=== PATIENT | female | born 1945 | race Caucasian/White ===

== ENCOUNTER 2019-09-27 08:25 | Outpatient (CLI) | payer MEDICARE, SELFPAY ==
--- NOTE | 2019-09-27 08:28 | ECG_ITS ---
Measurements Intervals [place] Rate: 64 P: 15 MS: 141 QRS: 43 QRSD: 97 T: 43 QT: 416 QTc: 431 Interpretive Statements SINUS RHYTHM NONSPECIFIC ST & T-WAVE ABNORMALITY- ANTERIOR LEADS BASELINE WANDER- V3 BORDERLINE ECG Electronically Signed On 09-27-2019 10:49:21 CDT by Jim Brown D.O.
== END 2019-09-27 08:26 | disposition home or self-care (01) ==
PROVIDERS: PCP Family Medicine Adolescent Medicine; Visit Provider Orthopaedic Surgery
DX: I10 Essential (primary) hypertension (principal); R94.31 Abnormal electrocardiogram [ECG] [EKG]
CPT/HCPCS: 93005

== ENCOUNTER 2019-09-29 02:05 | Outpatient (CLI) | payer MEDICARE, SELFPAY ==
[2019-09-29 18:38] LABS: SARS-CoV-2 RNA PCR Negative
== END 2019-09-29 02:06 | disposition home or self-care (01) ==
LOC: ANHCOVIDDT 02:06
PROVIDERS: PCP Family Medicine Adolescent Medicine; Visit Provider Orthopaedic Surgery
DX: Z01.812 Encounter for preprocedural laboratory examination (principal); Z11.59 Encounter for screening for other viral diseases
CPT/HCPCS: 87635; C9803; U0003

== ENCOUNTER 2019-10-01 01:38 | Day surgery (SDC) | payer MEDICARE, SELFPAY ==
[2019-09-24 14:18] VITALS: BMI 27.4
[2019-10-01] VITALS (17 sets, daily range): BP systolic 86–190; BP diastolic 66–111; PULSE 55–72; RESP 9–20; TEMP 36.1; O2SAT 93–100
--- NOTE | 2019-10-01 07:15 | WPDHPUPDATE1 ---
History and Physical Update Update Date/Time: 10/01/19 07:15 History and Physical has been reviewed, including an updated exam of the patient. There are NO changes in the patient's condition. Risks, benefits, and alternatives have been discussed and questions answered. Patient agrees to proceed with procedure.
--- NOTE | 2019-10-01 07:35 | WPDANESEPPF ---
Anes - Initial Pre Proc Eval Procedure: Operation Date: 10/01/19 09:00 Proposed Procedures p Left Knee Arthroscopy, Proceed As Indicated - Aashish Castaneda MD Date/Time: 10/01/19 07:35 Surgeon: Aashish Castaneda MD Pre Op Diagnosis: left medial meniscus tear Patient Data Age: 74 Gender: F Height: 5 ft 2 in Weight: 68.05 kg Allergies Allergy/AdvReac Type Severity Reaction Status Date / Time Sulfa (Sulfonamide Allergy Unknown Unknown Verified 09/24/19 14:09 Antibiotics) Home Medications Medication Instructions Recorded Confirmed Type atorvastatin 20 mg tablet 20 mg PO QPM 09/02/19 09/24/19 History baclofen 10 mg tablet 10 mg PO DAILY PRN 09/02/19 09/24/19 History candesartan 16 mg tablet 16 mg PO QPM 09/02/19 09/24/19 History esomeprazole magnesium 40 mg 40 mg PO QPM 09/02/19 09/24/19 History capsule,delayed release indomethacin 25 mg capsule 50 mg PO BID cap 09/02/19 09/24/19 History lorazepam 1 mg tablet 1 mg PO TID PRN 09/02/19 09/24/19 History trazodone 50 mg tablet 50 mg PO QPM tablet 09/02/19 09/24/19 History chlorhexidine gluconate 4 % 1 applic TOPICAL ONCE #237 ml 09/07/19 09/24/19 Rx topical liquid albuterol sulfate 2 puff INHALATION PRN PRN 09/24/19 09/24/19 History Patient hx anesthesia problems: post op nausea/vomiting Family hx anesthesia problems: none PMFSH Past Medical History Medical History Anemia Arthritis Asthma Hypertension TIA (transient ischemic attack) Surgical History Surgical History H/O skin graft History of appendectomy History of cholecystectomy History of hysterectomy History of tonsillectomy Family History Family History Other Hypertension Social History Social History Smoking status: Never smoker Alcohol intake: current Alcohol use details: ONE DRINK PER MONTH WINE Living arrangements: with family Spiritual care concerns: No Anes - Eval Final PreProcedure Day of Procedure 10/01/19 07:35 Patient weight: overweight Heart: regular rate and rhythm Lungs: clear to auscultation Airway: Mallampati scale class II Neurological: alert and oriented Last oral intake: >/= 8 hours ASA classification: III Emergent: no Anesthetic plan: proceed Anesthesia type and monitoring: general LMA and standard monitoring Informed Consent: The patient's anesthetic plan and its attendant risks and benefits were discussed with the patient/family/POA. Questions were solicited and answers provided to the satisfaction of the patient/family/POA.
[2019-10-01] MEDS: ACETAMINOPHEN 500 MG TABLET 1000 MG PO (08:15)
[2019-10-01] MEDS: CELECOXIB 200 MG CAPSULE PO (08:15)
[2019-10-01] MEDS: LACTATED RINGERS 1,000 ML 30 ML IV CONT ×2 (08:21→09:44)
[2019-10-01] MEDS: ceFAZolin 2 GM/D5W 50 ML 2 GM/50 ML BAG IVPB (08:44)
--- NOTE | 2019-10-01 09:43 | PM.OP ---
Procedure Note - Brief Procedure Note - Brief Date of procedure: 10/01/19 Pre-op diagnosis: left medial meniscus tear Post-op diagnosis: other (with lateral meniscus tear as well) Procedure performed: LEFT KNEE SCOPE Anesthesia: GLMA Surgeon: Aashish Castaneda MD Estimated blood loss (mL): 5 Complications: No immediate complications Condition: stable Disposition: PACU
--- NOTE | 2019-10-01 10:52 | OP_ITS ---
DATE OF PROCEDURE: 10/01/2019 PREOPERATIVE DIAGNOSIS: Left knee medial meniscus tear. POSTOPERATIVE DIAGNOSIS: Left knee medial meniscus tear with lateral meniscus tear. PROCEDURE PERFORMED: Left knee arthroscopy with partial medial meniscectomy, partial lateral meniscectomy, and major synovectomy. COMPLICATIONS: None. INDICATIONS: This is a 74-year-old female who had pain in the knee. She was diagnosed with a medial meniscus tear and a lateral meniscus tear. She was indicated for left knee arthroscopy. DESCRIPTION OF PROCEDURE: The patient was taken to the operating room in stable condition and placed in supine position. General anesthesia was induced and then, the left lower extremity was prepped and draped sterilely from the toes to the thigh. Superomedial portal used for an outflow cannula. Inferolateral portal was used for the camera. The camera was introduced. 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 Minimal chondromalacia into the trochlea. There was synovitis in Hoffa synovium and in the superomedial compartment that was impinging on the medial femoral condyle. The medial compartment was entered, there was a complex tear of the medial meniscus. A medial portal was established. The meniscus tear was resected down to a smooth base and chondroplasty was performed on the medial femoral condyle. There was an area of full thickness cartilage defect in the most posteromedial aspect of the medial plateau. The ACL then was intact. The lateral compartment was entered. There was a complex tear to the middle of the junction between the anterior and the posterior horns. This was resected with a shaver until there was a smooth base and limited chondroplasty was performed on the lateral femoral condyle. Next, the synovectomy was then performed in the lateral compartment due to impingement on the lateral joint line with flexion extension. Next, Hoffa synovium was resected and then the superomedial synovitis was also resected. The chondroplasty was then performed on the patella. The patella tracked without any tilt. The instruments were removed after thorough irrigation of the knee joint. The wounds were approximated with 4-0 nylon suture. Sterile dressing was applied and then the patient was extubated. Che I MT: Jessica
--- NOTE | 2019-10-01 10:52 | SUR.PHASEI ---
SATS TO 76% WHEN OXYGEN REMOVED; 8 L. OXYGEN PER FACE MASK REPLACED; PT REMAINS SLEEPY BUT AROUSABLE, SNORING.
[2019-10-01] MEDS: ONDANSETRON INJ 4 MG/2 ML VIAL IV PUSH (12:06)
--- NOTE | 2019-10-01 12:28 | SUR.PHASEI ---
1100 DR. MOJICA CALLED RE: PT'S PAIN AND SLEEPINESS; DR. MOJICA RECOMMENDED PT BE MOVED TO OP AREA.
--- NOTE | 2019-10-01 12:34 | SUR.PHASEII ---
DR. MOJICA NOTIFED RE: PT'S NAUSEA. ORDERS RECEIVED TO GIVE VALIUM AND BENADRYL.
[2019-10-01] MEDS: diphenhydrAMINE HCl INJ 50 MG/ML VIAL 12.5 MG IV PUSH (12:43)
--- NOTE | 2019-10-01 13:35 | SUR.PHASEII ---
DR. MOJICA CALLED RE: PT'S SLEEPINESS BUT PERSISTENT NAUSEA/PAIN. COOL COMPRESS TO PT'S NECK.
--- NOTE | 2019-10-01 13:49 | SUR.PHASEII ---
DR. ARAGON CALLED RE: PT'S SLEEPINESS/PAIN 10/17 AND PERSISTENT NAUSEA; OKAY'D TO GIVE TORADOL AND TO CONTINUE TO MONITOR PT. DR. ARAGON WILL CALL IN SCRIPT FOR ZOFRAN FOR HOME USE.
[2019-10-01] MEDS: KETOROLAC 30 MG/ML VIAL (*BKC) IV PUSH (14:00)
--- NOTE | 2019-10-01 14:48 | SUR.PHASEII ---
PT MUCH MORE AWAKE, ALERT, ABLE TO TRANSFER FROM WHEELCHAIR TO TOILET. VOIDED X 2. PAIN NOW 05/17. NAUSEA MINIMAL.
== END 2019-10-01 14:59 | disposition home or self-care (01) ==
PROVIDERS: PCP Family Medicine Adolescent Medicine; Visit Provider Orthopaedic Surgery
PROC: (CPT 29870; principal; 2019-10-01 09:00)
DX: M23.332 Other meniscus derangements, other medial meniscus, left knee (principal); M23.362 Other meniscus derangements, other lateral meniscus, left knee; M65.862 Other synovitis and tenosynovitis, left lower leg; M22.42 Chondromalacia patellae, left knee; I10 Essential (primary) hypertension; J45.909 Unspecified asthma, uncomplicated; Z86.73 Personal history of transient ischemic attack (TIA), and cerebral infarction without residual deficits
CPT/HCPCS: 29880; A9270; J0690; J1100; J1200; J1885; J2250; J2405; J2704; J3010; J3360; J7120

== ENCOUNTER 2020-05-29 07:55 | Outpatient (CLI) | payer MEDICARE, SELFPAY ==
[2020-05-29 09:04] LABS: Basophils Percent Auto 0.4 % (0.2-1.2); Eosinophils Absolute Auto 0.1 K/mm3 (0-0.3); Eosinophils Percent Auto 1.9 % (0-4.4); Hematocrit 46.5 % (37.0-47.0); Hemoglobin 15.5 g/dL (12.0-15.0); Immature Granulocyte Absolute 0.01 K/mm3 (0.00-0.031); Immature Granulocyte Percent A 0.1 % (0-0.5); Lymphocytes Absolute Auto 2.91 K/mm3 (0.9-3.2); Lymphocytes Percent Auto 42.8 % (18.3-44.2); Mean Corpuscular HGB Conc 33.3 g/dl (32-36); Mean Corpuscular Hemoglobin 28.2 pg (26-34); Mean Corpuscular Volume 84.7 fl (80-100); Mean Platelet Volume 11.2 fl (7.4-10.4); Monocytes Absolute Auto 0.6 K/mm3 (0.1-0.6); Monocytes Percent Auto 8.1 % (2.6-8.5); Neutrophils Absolute Auto 3.2 K/mm3 (1.3-6.7); Neutrophils Percent Auto 46.7 % (45.5-73.1); Platelet Count Result 217 k/mm3 (150-375); Red Blood Count 5.49 M/mm3 (4.2-5.4); Red Cell Distribution Width 12.4 % (11.5-14.5); White Blood Count 6.8 K/mm3 (4.5-10.0)
[2020-05-29 09:08] LABS: Add Urine Microscopic? YES; Appearance Urine Clear (Clear); Bilirubin Urine Negative (Negative); Blood Urine 1+ (Negative); Color Urine Straw (Yellow); Glucose Urine UA Negative (Negative); Ketones Urine Negative (Negative); Leukocyte Esterase Ur Negative LEU/UL (Negative); Mucus Urine Rare /lpf; Nitrate Urine Negative (Negative); Protein Urine Negative (Negative); RBC Urine 0-2 /hpf (0-2); Specific Grav Ur 1.012 (1.001-1.035); Squamous Epithelial Cell Urine Rare /hpf (Few); Urobilinogen Urine Negative mg/dL (<2.0)
[2020-05-29 09:13] LABS: INR 0.8; Prothrombin Time 12.1 Seconds (11.1-14.7)
[2020-05-29 09:14] LABS: Partial Thromboplastin Time 31.5 SECONDS (22.3-36.8)
[2020-05-29 09:15] LABS: Albumin Level 4.4 g/dL (3.5-5.1); Anion Gap 4 mmol/L (8-16); Blood Urea Nitrogen 16 mg/dL (7-17); Calcium 10.1 mg/dL (8.4-10.2); Carbon Dioxide 32 mmol/L (22-30); Chloride 107 mmol/L (98-107); Estimated Glomerular Filt Rate > 60; Glucose 128 mg/dL (65-105); Potassium 3.8 mmol/L (3.4-5.0); Sodium 143 mmol/L (137-145)
[2020-05-29 10:07] LABS: Urine Cotinine NEGATIVE
[2020-05-29 11:12] LABS: Hemoglobin A1C 5.7 % (<5.7)
== END 2020-05-29 07:56 | disposition home or self-care (01) ==
LOC: ANHSURGERY 07:58
PROVIDERS: PCP Family Medicine Adolescent Medicine; Visit Provider Orthopaedic Surgery
DX: M17.12 Unilateral primary osteoarthritis, left knee (principal); Z01.818 Encounter for other preprocedural examination
CPT/HCPCS: 80048; 80307; 81001; 82040; 83036; 85025; 85610; 85730; 86850; 86900; 86901; 87081

== ENCOUNTER → 2020-06-03 00:29 | Outpatient (CLI) | payer MEDICARE, SELFPAY ==
[2020-06-03 20:23] LABS: SARS-CoV-2 RNA PCR Negative
== END ==
PROVIDERS: PCP Family Medicine Adolescent Medicine; Visit Provider Orthopaedic Surgery
DX: Z01.812 Encounter for preprocedural laboratory examination (principal); Z20.822 Contact with and (suspected) exposure to COVID-19
CPT/HCPCS: C9803; U0003; U0005

== ENCOUNTER 2020-06-08 15:42 | Observation (INO) | payer MEDICARE, SELFPAY ==
[2020-05-29 08:04] VITALS: BMI 30.5
[2020-05-29 08:54] VITALS: BP 162/96; PULSE 90; RESP 16; TEMP 36.7; O2SAT 96
[2020-06-07] VITALS (21 sets, daily range): BP systolic 105–151; BP diastolic 58–95; PULSE 73–100; RESP 14–26; TEMP 36.1–37.2; O2SAT 93–100; BMI 30.2
--- NOTE | 2020-06-07 07:13 | WPDHPUPDATE1 ---
History and Physical Update Update Date/Time: 06/07/20 07:13 History and Physical has been reviewed, including an updated exam of the patient. There are NO changes in the patient's condition. Risks, benefits, and alternatives have been discussed and questions answered. Patient agrees to proceed with procedure.
[2020-06-07] MEDS: ACETAMINOPHEN 500 MG TABLET 1000 MG PO (08:46)
[2020-06-07] MEDS: LACTATED RINGERS 1,000 ML 30 ML IV CONT ×3 (08:59→14:06)
[2020-06-07] MEDS: TRANEXAMIC ACID 1,000MG/ISO100 1,000 MG/100 ML BAG 200 MG IVPB (09:01)
--- NOTE | 2020-06-07 09:11 | WPDANESEPPF ---
Anes - Initial Pre Proc Eval Procedure: Operation Date: 06/07/20 10:30 Proposed Procedures p Left Total Knee Arthroplasty - Aashish Castaneda MD Date/Time: 06/07/20 09:11 Surgeon: Aashish Castaneda MD Pre Op Diagnosis: Left Knee DJD Patient Data Age: 74 Gender: F Height: 5 ft 2 in Weight: 75.7 kg Last Vital Signs Temp 36.7 C 06/07/20 08:30 Pulse 95 06/07/20 08:30 Resp 16 06/07/20 08:30 BP 151/95 H 06/07/20 08:30 Pulse Ox 98 06/07/20 08:30 Allergies Allergy/AdvReac Type Severity Reaction Status Date / Time Sulfa (Sulfonamide Allergy Unknown Unknown Verified 06/07/20 08:29 Antibiotics) Home Medications Medication Instructions Recorded Confirmed Type atorvastatin 20 mg tablet 20 mg PO QPM 09/02/19 06/07/20 History esomeprazole magnesium 40 mg 40 mg PO QPM 09/02/19 06/07/20 History capsule,delayed release lorazepam 1 mg tablet 1 mg PO TID PRN 09/02/19 06/07/20 History trazodone 50 mg tablet 50 mg PO HS tablet 09/02/19 05/29/20 History albuterol sulfate 2 puff INHALATION PRN PRN 09/24/19 06/07/20 History chlorhexidine gluconate 4 % 1 applic TOPICAL ONCE #237 ml 05/02/20 06/07/20 Rx topical liquid amlodipine 5 mg tablet 5 mg PO HS 05/18/20 06/07/20 History candesartan 32 mg PO HS 05/29/20 06/07/20 History tramadol 50 mg tablet 50 mg PO Q6H PRN #28 tablet 05/29/20 Rx Patient hx anesthesia problems: other (slow to awaken) Family hx anesthesia problems: none PMFSH Past Medical History Medical History Anemia Arthritis Asthma Effusion, left knee Hypertension Left knee DJD Medial meniscus tear TIA (transient ischemic attack) Surgical History Surgical History H/O skin graft History of appendectomy History of arthroscopy of left knee History of cholecystectomy History of hysterectomy History of tonsillectomy Family History Family History Other Hypertension Social History Social History Smoking status: Never smoker Additional smoking assessment comments: DENIES ANY FORM OF TOBACCO USE Alcohol intake: current Alcohol use details: ONE DRINK PER MONTH Living arrangements: with family Spiritual care concerns: No Anes - Eval Final PreProcedure Day of Procedure 06/07/20 09:11 Patient weight: obese Heart: regular rate and rhythm Lungs: clear to auscultation Airway: Mallampati scale class II Neurological: alert and oriented Last oral intake: >/= 8 hours ASA classification: III Emergent: no Anesthetic plan: proceed Anesthesia type and monitoring: general LMA and standard monitoring Other findings: slow to awaken Informed Consent: The patient's anesthetic plan and its attendant risks and benefits were discussed with the patient/family/POA. Questions were solicited and answers provided to the satisfaction of the patient/family/POA.
--- NOTE | 2020-06-07 10:14 | WPDANESPNB ---
Anes - Peripheral Nerve Block Date/Time: 06/07/20 10:14 I have discussed with the patient/family/POA the placement of a peripheral nerve block for post-operative pain management, including associated risks, benefits, complications, and side effects. Alternative methods of post-operative analgesia were detailed. Questions were solicited and answers provided to the satisfaction of the patient/family/POA. Time-Out: A pre-procedural Time-Out was completed immediately before starting the procedure and confirmed: Patient Identification, Site, Procedure, Patient Position and the Availability of Requisite Equipment. Clinical Indications: Acute post-operative pain management requested by the operative surgeon. Nerve Block Insertion Note Anes-nerve block: femoral left Patient position: supine Skin prep: chlorhexidine Needle: 22 gauge, stimulating, insulated echogenic needle. Needle length: 80 mm Technique: nerve stimulation lost at (mA) (0.21) Technique comment: mid 1 [id number] Injectate: other (bupiv 0.33% 30 ml) Observations: tolerated well Complications: none Procedure start time:: 1008 Procedure end time:: 1013
[2020-06-07] MEDS: ceFAZolin 2 GM/D5W 50 ML 2 GM/50 ML BAG IVPB ×2 (10:25→17:40)
[2020-06-07] MEDS: TRANEXAMIC ACID 1,000 MG/10 ML AMPUL 1000 MG IV PUSH (12:07)
[2020-06-07] MEDS: GENTAMICIN BONE CEMENT REFOBACIN 1 EACH TOPICAL (12:33)
--- NOTE | 2020-06-07 12:56 | PM.PROC ---
Procedure Note - Detailed Date of procedure: 06/07/20 Pre-op diagnosis: Left Knee DJD Post-op diagnosis: same Procedure performed: L TKA Description of procedure: THE LEFT KNEE WAS PREPPED AND DRAPED IN THE STERILE FASHION. A MIDLINE SKIN INCISION WAS MADE. A MEDIAL PARAPATELLAR ARTHROTOMY WAS MADE. THE PATELLA WAS EVERTED. THERE WAS TRICOMPARTMENT DJD. THERE WAS MINIMAL PATELLA DJD. AN INTRAMEDULLARY ROBYN WAS PLACED IN THE FEMUR. A DISTAL FEMORAL CUT WAS MADE IN 5 DEGREES OF VALGUS REMOVING APPROXIMATELY 9 MM OF BONE FROM THE DISTAL FEMUR. THE FEMUR WAS SIZED TO 62.5. A 62.5 FEMORAL CUTTING BLOCK WAS PLACED IN 3 DEGREES OF EXTERNAL ROTATION AND IN ALIGNMENT WITH ERIC'S LINE AND THE TRANSEPICONDYLAR AXIS. ANTERIOR POSTERIOR AND CHAMFER CUTS WERE MADE. THE CUTS WERE EXCELLENT. NEXT AN INTRAMEDULLARY CUTTING GUIDE WAS PLACED IN THE TIBIA. A TRANS TIBIAL CUT WAS MADE ALONG THE LONG AXIS OF THE TIBIA. APPROXIMATELY 10 MM OF BONE WAS REMOVED FROM THE HIGH SIDE OF THE TIBIA. THE TIBIA WAS THEN PLANED TO A SMOOTH SURFACE. POSTERIOR FEMORAL OSTEOPHYTES WERE REMOVED FROM THE FEMORAL CONDYLES. A 71 TIBIAL TRIAL WAS PLACED IN ALIGNMENT WITH THE 1/3 MEDIAL ASPECT OF THE TIBIAL TUBERCLE. THEN A 62.5 FEMORAL TRIAL COMPONENT WAS PLACED. BOTH HAD EXCELLENT FITS. EVENTUALLY A 10 MM POLYETHYLENE TRIAL COMPONENT WAS PLACED. THE KNEE WAS TAKEN THROUGH A RANGE OF MOTION. THE KNEE CAME OUT TO FULL EXTENSION. THERE WAS NO ABNORMAL TILT TO THE PATELLA. THERE WAS GOOD A/P AND VARUS/VALGUS STABILITY. THERE WAS NO EXCESSIVE ROLL BACK WITH FLEXION. THE TRIAL COMPONENTS WERE REMOVED. THEN A 62.5 FEMORAL COMPONENT AND 71 TIBIAL COMPONENT WITH A 10 POLYETHYLENE COMPONENT WERE CEMENTED INTO PLACE. ONCE THE CEMENT WAS HARD THE KNEE WAS TAKEN THROUGH A ROM AGAIN AND FOUND TO BE STABLE WITH NO PATELLA TILT NO EXCESSIVE ROLL BACK WITH FLEXION AND GOOD STABILITY WITH COMPLETE AND FULL EXTENSION. THE KNEE WAS IRRIGATED WITH STERILE BETADINE AND WATER FOR ABOUT 3 MINUTES. THE BLEEDERS WERE CAUTERIZED. THE ARTHROTOMY WAS REPAIRED WITH NUMBER 1 VICRYL. THE SUB CUTANEOUS LAYER WITH 2-0 VICRYL AND THE SKIN WITH EARL. THE WOUND WAS WASHED AND A STERILE DRESSING WAS APPLIED. PATIENT WAS EXTUBATED. Anesthesia: GETA Surgeon: Aashish Castaneda MD Estimated blood loss (mL): 100 Complications: No immediate complications Condition: stable Disposition: PACU
[2020-06-07] MEDS: fentaNYL CITRATE INJ (*CRX) 100 MCG/2 ML VIAL 25 MCG IV PUSH ×5 (13:06→14:11)
[2020-06-07] MEDS: ALBUTEROL SULFATE NEB 2.5 MG/0.5 ML INH INHALATION (13:36)
--- NOTE | 2020-06-07 15:50 | ADMGEN ---
This patient, Tierra Nelson, was admitted to 2 Medical Room 241-01. Patient/family oriented to hospital policies and general routines including ID bracelet, bed and alarms, visiting hours, pain management, procedures, bathroom and other care routines, personal items, smoking policy, room service/diet, and visiting hours. Information on how to activate the Rapid Response Team has been discussed. Patient/Family are encouraged to report perceived risks to care and to ask questions if they do not understand what they are told or what they should do.
[2020-06-07] MEDS: ONDANSETRON INJ 4 MG/2 ML VIAL IV PUSH ×2 (16:39→20:26)
[2020-06-07] MEDS: oxyCODONE/ACETAMINOPHEN (*CRX) 5-325 MG TABLET 1 TABLET PO ×2 (16:39→20:56)
[2020-06-07] MEDS: ATORVASTATIN 20 MG TABLET PO (17:40)
[2020-06-07] MEDS: PANTOPRAZOLE 40 MG TABLET PO (17:40)
[2020-06-07] MEDS: DOCUSATE SODIUM 100 MG CAPSULE PO (17:40)
[2020-06-07] MEDS: amLODIPine BESYLATE 5 MG TABLET PO (20:55)
[2020-06-07] MEDS: CANDESARTAN CILEXETIL 16 MG TABLET 32 MG PO (20:56)
[2020-06-08] VITALS (11 sets, daily range): BP systolic 79–124; BP diastolic 48–84; PULSE 79–97; RESP 16–20; TEMP 36.7–37.1; O2SAT 93–98
--- NOTE | ~2020-06-08 | US_ITS ---
EXAMINATION: US venous doppler [facility] DATE: 06/08/2020 10:56 INDICATION: Left lower limb pain and swelling post recent knee replacement TECHNIQUE: Grayscale ultrasound images without and with compression and Doppler ultrasound images of the left lower extremity veins were obtained. COMPARISON: 09/13/2013 FINDINGS: The visualized portions of left common femoral vein, profunda (deep) femoral vein, femoral vein, popl iteal vein, peroneal veins, posterior tibial veins, gastrocnemius vein and greater saphenous vein out flow remain patent. IMPRESSION: 1. No deep venous thrombosis in the left lower limb. Reviewed, dictated and finalized at location A.
--- NOTE | ~2020-06-08 | XR_ITS ---
EXAMINATION: XR knee LT 2V DATE: 06/07/2020 13:03 INDICATION: Postoperative evaluation following left total knee arthroplasty. TECHNIQUE: Anteroposterior and lateral views of the left knee were obtained. COMPARISON: 05/18/2020 FINDINGS: Left total knee arthroplasty without patellar resurfacing appears well seated and in near anatomic al ignment. No fractures identified. Skin gabriella and expected postoperative subcutaneous and intra-ar ticular gas. IMPRESSION: 1. Left total knee arthroplasty, negative for postoperative purposes. Reviewed, dictated and finalized at location A.
[2020-06-08] MEDS: ceFAZolin 2 GM/D5W 50 ML 2 GM/50 ML BAG IVPB ×2 (02:01→11:32)
[2020-06-08] MEDS: oxyCODONE/ACETAMINOPHEN (*CRX) 5-325 MG TABLET 1 TABLET PO (02:02)
[2020-06-08] MEDS: ONDANSETRON INJ 4 MG/2 ML VIAL IV PUSH (02:03)
[2020-06-08 06:07] LABS: Basophils Percent Auto 0.2 % (0.2-1.2); Eosinophils Percent Auto 0.1 % (0-4.4); Hematocrit 34.6 % (37.0-47.0); Hemoglobin 11.3 g/dL (12.0-15.0); Immature Granulocyte Absolute 0.05 K/mm3 (0.00-0.031); Immature Granulocyte Percent A 0.4 % (0-0.5); Lymphocytes Percent Auto 16.3 % (18.3-44.2); Mean Corpuscular HGB Conc 32.7 g/dl (32-36); Mean Corpuscular Hemoglobin 27.7 pg (26-34); Mean Corpuscular Volume 84.8 fl (80-100); Mean Platelet Volume 11.8 fl (7.4-10.4); Monocytes Absolute Auto 1.4 K/mm3 (0.1-0.6); Monocytes Percent Auto 11.2 % (2.6-8.5); Neutrophils Absolute Auto 9.3 K/mm3 (1.3-6.7); Neutrophils Percent Auto 71.8 % (45.5-73.1); Platelet Count Result 216 k/mm3 (150-375); Red Blood Count 4.08 M/mm3 (4.2-5.4); Red Cell Distribution Width 12.6 % (11.5-14.5); White Blood Count 12.9 K/mm3 (4.5-10.0)
[2020-06-08 06:27] LABS: Anion Gap 3 mmol/L (8-16); Blood Urea Nitrogen 19 mg/dL (7-17); Calcium 9.4 mg/dL (8.4-10.2); Carbon Dioxide 30 mmol/L (22-30); Chloride 105 mmol/L (98-107); Estimated CRCL calculation 52 ml/min; Estimated Glomerular Filt Rate > 60; Glucose 120 mg/dL (65-105); Sodium 138 mmol/L (137-145)
--- NOTE | 2020-06-08 07:34 | WPDANESPN ---
Anes - Prog Note Post-Op Date/Time: 06/08/20 07:34 Cardiovascular status: normal Respiratory status: normal Airway patency: baseline Mental status: baseline Post-Op hydration status: normal Vital Signs: Last Vital Signs Temp 36.8 C 06/08/20 01:35 Pulse 82 06/08/20 01:35 Resp 20 06/08/20 01:35 BP 120/74 06/08/20 01:35 Pulse Ox 98 06/08/20 01:35 Pain Score (VAS): 0 I/O: Intake & Output 06/07/20 06/07/20 06/08/20 15:59 23:59 07:59 Intake Total 650 50 50 Output Total 350 Balance 300 50 50 Laboratory Tests 06/08/20 05:12 06/08/20 05:12 06/08/20 06/08/20 05:12 05:12 WBC 12.9 H RBC 4.08 L Hgb 11.3 L D Hct 34.6 L MCV 84.8 MCH 27.7 MCHC 32.7 RDW 12.6 Plt Count 216 MPV 11.8 H Immature Gran % (Auto) 0.4 Neut % (Auto) 71.8 Lymph % (Auto) 16.3 L Morrison % (Auto) 11.2 H Eos % (Auto) 0.1 Baso % (Auto) 0.2 Lymph # (Auto) 2.10 Morrison # (Auto) 1.4 H Eos # (Auto) 0.0 Baso # (Auto) 0.0 Abs Immat Gran (auto) 0.05 H Absolute Neuts (auto) 9.3 H Absolute Nucleated RBC 0.0 Nucleated RBC % 0.0 Sodium 138 Potassium 4.0 Chloride 105 Carbon Dioxide 30 Anion Gap 3 L BUN 19 H Creatinine 0.80 Estim Creat Clear Calc 52 Estimated GFR > 60 Glucose 120 H Calcium 9.4 Post-procedural complaints: none Patient Feedback: Patient satisfied with anesthetic care.
[2020-06-08] MEDS: oxyCODONE HCL (*CRX) 2.5 MG TAB IR 7.5 MG PO ×4 (08:16→20:49)
[2020-06-08] MEDS: DOCUSATE SODIUM 100 MG CAPSULE PO ×2 (08:17→16:43)
--- NOTE | 2020-06-08 08:24 | PM.IMCN ---
Assessment and Plan Assessment and plan (1) Status post left knee replacement: Code(s): Z96.652 - Presence of left artificial knee joint Status: Acute Assessment and Plan: She underwent left total knee arthroplasty on 06/07/[address] Castaneda. She tolerated the procedure well and pain is well controlled at this time. This is being managed per Orthopedic Surgery. She had some left lower leg swelling and tenderness postoperatively. Venous Doppler negative for DVT. Suspect this is related to postsurgical changes. (2) Hypotension after procedure: Code(s): I95.81 - Postprocedural hypotension Status: Acute Assessment and Plan: Her BP declined to 79/48 this morning while walking with therapy. She has felt dizzy at that time but the symptoms have resolved. Prior blood pressure readings have been well controlled. I suspect this is multifactorial related to recent surgical procedure, anesthesia, and dehydration. Upon further review, she also had an episode of hypotension with last surgical procedure in September 2019. Administer 500 mL IV fluid bolus. Check orthostatics. Monitor BP trends closely. Will hold amlodipine and candesartan at this time. (3) Anemia: Code(s): D64.9 - Anemia, unspecified Status: Acute Assessment and Plan: She has a documented history of anemia, however prior labs are within normal limits. She did have a 4 point decline in hemoglobin postoperatively compared to presentation which is likely related to surgical blood loss as well as dilutional effect. Hemoglobin and hematocrit remain stable. Vital signs are stable and there is no evidence of ongoing blood loss. Continue to monitor H&H. Will transfuse as needed with hemoglobin threshold <7.0. (4) Hypertension: Code(s): I10 - Essential (primary) hypertension Status: Acute Assessment and Plan: Blood pressure reviewed and has been fairly well controlled. She has had some episodes of low blood pressure this morning. Will hold amlodipine in candesartan while monitoring BP trends. (5) Asthma: Qualifiers: Asthma severity: mild Asthma persistence: intermittent Asthma complication type: with acute exacerbation Qualified Code(s): J45.21 - Mild intermittent asthma with (acute) exacerbation Code(s): J45.909 - Unspecified asthma, uncomplicated Status: Acute Assessment and Plan: Not in acute exacerbation. She is maintaining adequate oxygen saturations on room air. Continue albuterol as needed. HPI Data of Consult Consult date: 06/08/20 Requesting Physician: Aashish Castaneda MD Primary Care Provider: Benjamín Currie MD Consult Narrative Narrative: Date of admission: 06/08/2019 Date of service: 06/09/2019 Tierra Nelson is a 74 year old female with a history left knee degenerative joint disease, hypertension, asthma, osteoarthritis, anemia, GERD, and TIA >10 years ago who has undergone left total knee arthroplasty on 06/07/[address] Castaneda. She tolerated the procedure well. She complains of 7/10 pain in the knee and stated that it was 8.5/10 just a bit ago when she was up walking with therapy. She is also complaining of swelling in the left leg, especially in the calf and states that her calf is very tender. This morning, when she was walking with therapy, she felt very dizzy and it was noted that her blood pressure decreased to 79/48. This improved upon getting back in bed. At this time, she is denying dizziness or lightheadedness. She plans to return home where she lives with her daughter and complete her therapy as an outpatient. She has 2 steps to get into her home. Her daughter is with her multimedia journalist to assist her. Review of Systems Review of Systems: Narrative: All systems reviewed with pertinent positives and negatives as per HPI. She felt nauseous after the procedure and had 1 episode of emesis. Nausea and vomiting hav
--- NOTE | 2020-06-08 08:52 | PM.PNORT ---
Progress Note: A&P Assessment and Plan (1) Status post left knee replacement: Code(s): Z96.652 - Presence of left artificial knee joint Status: Acute Assessment and Plan: POD #1: Left TKA Continue PT/OT. WBAT. Walker. Continue pain control. Ice Knee. DVT prophylaxis. SCDs. Incentive spirometry. Monitor dressing. Change prior to discharge. Dispo: Home with Home Health today pending progress with PT/OT. Subjective Subjective Date/Time Seen: 06/08/20 08:52 Post Op day: 1 Principal diagnosis: Left Knee DJD Interval history: POD #1: Left TKA Patient reports some anxiety/panic this morning but is now feeling better. Awaiting PT/OT this AM. Tolerating diet well. Hopeful for discharge home today. Review of Systems Review of Systems: All systems reviewed & are unremarkable except as noted in HPI and below Constitutional: Constitutional: Denies fever(s) and Denies headache(s) ENT: Denies headache(s) Cardiovascular: Cardiovascular: Denies chest pain, Denies diaphoresis, Denies palpitations and Denies dyspnea Respiratory: Respiratory: Denies dyspnea Gastrointestinal: Gastrointestinal: Denies abdominal pain, Denies constipation, Denies nausea and Denies vomiting Genitourinary: Genitourinary: Reports nocturia and Denies dysuria Musculoskeletal: Musculoskeletal: Reports arthralgias (Left Knee ) and Reports joint swelling (Left Knee ) Neurologic: Denies headache(s) Endocrine: Endocrine: Denies palpitations Exam Const: General: comfortable and no acute distress Resp: Effort & Inspection: normal respiratory effort Cardio: Rate: regular rate Rhythm: regular rhythm GI: GI Palp: Yes Soft to palpation, No Tenderness to palpation present (GI) and No Guarding due to palpation present (GI) Skin: Wounds: wounds noted Other: Incision c/d/i. No surrounding redness/warmth. No hematoma. Mild ecchymosis. No wound dehiscence Neuro: Cognition (Neuro): normal cognition Other: NV intact aside from block. Moves toes. Sensation intact to light touch. +ankle dorsiflexion/plantarflexion. Extrem: Right lower extremity: normal to inspection, full ROM and knee Details: normal to inspection and normal ROM; no tenderness and no swelling Left lower extremity: normal to inspection, full ROM, knee Details: tenderness Location: of the patella, of the medial joint line and of the lateral joint line, swelling Location: of the patella and abnormal ROM (ROM limited due to pain/consistent with recent surgery ), lower leg Details: tenderness Location: of the posterior calf, ankle (+ankle dorsiflexion/plantarflexion ) Details: no edema and foot (2+ pedal pulses. ) Details: normal capillary refill, toes with normal ROM and vascular exam Details: dorsalis pedis pulse present Other: Incision left TKA dressing c/d/i. No hematoma. No signs of infection. No wound dehiscence. Psych: Mental Status: mental status grossly normal Objective Data Vital Signs Vital Signs: Vital Signs - 24 hr 06/07/20 12:49 06/07/20 13:00 06/07/20 13:15 Temperature 36.6 C Pulse Rate 80 82 73 Respiratory Rate 24 H 26 H 22 H Blood Pressure 116/80 119/74 137/81 Pulse Oximetry 94 93 97 06/07/20 13:30 06/07/20 13:37 06/07/20 13:45 Temperature Pulse Rate 81 76 73 Respiratory Rate 22 H 18 16 Blood Pressure 149/75 H 139/75 Pulse Oximetry 99 96 06/07/20 14:00 06/07/20 14:15 06/07/20 14:30 Temperature Pulse Rate 89 90 84 Respiratory Rate 20 20 18 Blood Pressure 137/86 130/83 131/76 Pulse Oximetry 93 93 97 06/07/20 14:45 06/07/20 15:00 06/07/20 15:15 Temperature 37.2 C Pulse Rate 83 86 87 Respiratory Rate 14 16 16 Blood Pressure 138/81 134/86 141/76 H Pulse Oximetry 98 97 93 06/07/20 15:27 06/07/20 15:50 06/07/20 16:05 Temperature 36.2 C L 36.6 C Pulse Rate 88 89 87 Respiratory Rate 16 16 16 Blood Pressure 140/76 127/76 105/58 L Pulse Oximetry 93 96 96 06/07/20 16:35 06/07/20 17:35 06/07/20 17:50 Temperat
[2020-06-08] MEDS: SODIUM CHLORIDE 0.9% IV 500 ML IV CONT (10:25)
[2020-06-08] MEDS: ASPIRIN 325 MG ENTERIC TABLET 650 MG PO (10:30)
[2020-06-08] MEDS: PANTOPRAZOLE 40 MG TABLET PO (16:45)
[2020-06-08] MEDS: ATORVASTATIN 20 MG TABLET PO (16:45)
[2020-06-09] MEDS: ONDANSETRON INJ 4 MG/2 ML VIAL IV PUSH (01:11)
[2020-06-09] MEDS: LORazepam (*CRX) 1 MG TABLET PO ×2 (01:14→08:57)
[2020-06-09 02:00] VITALS: BP 122/69; PULSE 69; RESP 18; TEMP 37.4; O2SAT 96
--- NOTE | 2020-06-09 04:04 | PC.NURSE ---
ATTEMPTED TO CALL DR ARAGON. PTS LEFT LOWER LEG EDEMATOUS AND TAUT, KNEE REDDENED AND WARM TO TOUCH
[2020-06-09 05:09] LABS: Hematocrit 31.3 % (37.0-47.0)
[2020-06-09 06:00] VITALS: BP 118/69; PULSE 99; RESP 18; TEMP 37.1; O2SAT 97
[2020-06-09] MEDS: oxyCODONE HCL (*CRX) 2.5 MG TAB IR 7.5 MG PO (06:41)
--- NOTE | 2020-06-09 07:38 | PCOTNOTE ---
Attempted to see Patient for A.M. treatment session. Per RN, Patient unable to be seen at this time. Patient is having changes in surgical site and RN consulting. Will check back at a later time.
--- NOTE | 2020-06-09 07:39 | PCPTNOTE ---
Addendum entered by Antonieta Lincoln, [employer] DIRECTOR 06/09/20 10:19: Verbal approval from RN to continue with PT. Original Note: PT treatment was held this AM per RN, due to change in surgical site. Will continue per Plan of Care frequency and duration.
--- NOTE | 2020-06-09 08:11 | PM.PNORT ---
Progress Note: A&P Assessment and Plan (1) Status post left knee replacement: Code(s): Z96.652 - Presence of left artificial knee joint Status: Acute Assessment and Plan: POD #2: Left TKA Difficulty with pain control yesterday and hypotensive episode x1. BP stable today. VSS. H/H Stable. Continue PT/OT. WBAT. Walker. OOB to chair. Continue pain control. Ice Knee. DVT prophylaxis with Aspirin. SCDs. Incentive spirometry. Ankle ROM. Monitor dressing. Change prior to discharge. Send patient with one additional dressing to be changed by home health in 5 days. Dispo: Home with Home Health today pending clearance from PT/OT. (2) Pain of left calf: Code(s): M79.662 - Pain in left lower leg Status: Acute Assessment and Plan: Patient with complaints of left calf pain/tightness yesterday. Doppler negative for DVT on 06/08. Patient on DVT prophylaxis. SCDs. Thigh/Calf soft today. Swelling consistent with recent surgical intervention. No erythema/warmth. Subjective Subjective Date/Time Seen: 06/09/20 08:11 POD #2: Left TKA Patient with c/o pain this AM. Improvement in anxiety. Awaiting PT/OT. Review of Systems Review of Systems: All systems reviewed & are unremarkable except as noted in HPI and below Constitutional: Constitutional: Denies fever(s) and Denies headache(s) ENT: Denies headache(s) Cardiovascular: Cardiovascular: Denies chest pain, Denies diaphoresis, Denies palpitations and Denies dyspnea Respiratory: Respiratory: Denies dyspnea Gastrointestinal: Gastrointestinal: Denies abdominal pain, Denies constipation, Denies nausea and Denies vomiting Genitourinary: Genitourinary: Reports nocturia and Denies dysuria Musculoskeletal: Musculoskeletal: Reports arthralgias (Left Knee ) and Reports joint swelling (Left Knee ) Neurologic: Denies headache(s) Endocrine: Endocrine: Denies palpitations Exam Const: General: comfortable and no acute distress Resp: Effort & Inspection: normal respiratory effort Cardio: Rate: regular rate Rhythm: regular rhythm GI: GI Palp: Yes Soft to palpation, No Tenderness to palpation present (GI) and No Guarding due to palpation present (GI) Skin: Wounds: wounds noted Other: Incision c/d/i. No surrounding redness/warmth. No hematoma. Mild ecchymosis. No wound dehiscence. Thigh soft/Calf soft. Neuro: Cognition (Neuro): normal cognition Other: NV intact. Moves toes. Sensation intact to light touch. +ankle dorsiflexion/plantarflexion. Extrem: Right lower extremity: normal to inspection, full ROM and knee Details: normal to inspection and normal ROM; no tenderness and no swelling Left lower extremity: normal to inspection, full ROM, knee Details: tenderness Location: of the patella, of the medial joint line and of the lateral joint line, swelling (diffuse- thigh/calf soft. No acute pain with palpation. ), abnormal ROM (ROM limited due to pain/consistent with recent surgery ) Details: pain with active ROM Details: with extension and with flexion, pain with passive ROM Details: with extension and with flexion and with range as follows (limited ); able to extend lower leg actively and ecchymosis (diffuse left knee- no evidence of hematoma ); no crepitus, lower leg Details: tenderness (mild- improvement from exam yesterday. ) Location: of the posterior calf, ankle (+ankle dorsiflexion/plantarflexion ) Details: no edema and foot (2+ pedal pulses. ) Details: normal capillary refill, toes with normal ROM and vascular exam (2+ pedal pulses. ) Details: dorsalis pedis pulse present Other: Incision left TKA dressing c/d/i. No hematoma. No signs of infection. No wound dehiscence. Psych: Mental Status: mental status grossly normal Thought content: Yes Normal thought content present Objective Data Vital Signs Vital Signs: Vital Signs - 24 hr 06/08/20 10:00 06/08/20 10:05 06/08/20 12:00 Temperature Pulse Rate 86 Respiratory Rate Blood Pressure
[2020-06-09 08:48] LABS: Hematocrit 31.2 % (37.0-47.0); Hemoglobin 10.1 g/dL (12.0-15.0); Mean Corpuscular HGB Conc 32.4 g/dl (32-36); Mean Corpuscular Hemoglobin 27.8 pg (26-34); Platelet Count Result 178 k/mm3 (150-375); Red Blood Count 3.63 M/mm3 (4.2-5.4); Red Cell Distribution Width 12.7 % (11.5-14.5); White Blood Count 8.7 K/mm3 (4.5-10.0)
[2020-06-09] MEDS: ASPIRIN 325 MG ENTERIC TABLET 650 MG PO (08:56)
[2020-06-09] MEDS: DOCUSATE SODIUM 100 MG CAPSULE PO ×2 (08:57→17:17)
--- NOTE | 2020-06-09 10:41 | PM.IMPN ---
Progress Note: A&P Assessment and Plan (1) Status post left knee replacement: Code(s): Z96.652 - Presence of left artificial knee joint Status: Acute Assessment and Plan: She underwent left total knee arthroplasty on 06/07/[address] Castaneda. She tolerated the procedure well and pain is well controlled at this time. This is being managed per Orthopedic Surgery. She had some left lower leg swelling and tenderness postoperatively. Venous Doppler negative for DVT. Suspect this is related to postsurgical changes. Planning for return home today following PT/OT clearance. She has home health arranged. (2) Hypotension after procedure: Code(s): I95.81 - Postprocedural hypotension Status: Acute Assessment and Plan: Her BP declined to 79/48 yesterday morning while walking with therapy. She felt dizzy at that time but symptoms quickly resolved. Prior blood pressure readings have been well controlled. Upon further review, she also had an episode of hypotension with last surgical procedure in September 2019. She was given a 00 mL IV fluid bolus. Orthostatic BP evaluation was negative. Amlodipine and candesartan were held.. Antihypertensives can be resumed. I recommend that she monitor her BP at home 2-3 days per week for PCP review. (3) Anemia: Code(s): D64.9 - Anemia, unspecified Status: Acute Assessment and Plan: She has a documented history of anemia, however prior labs are within normal limits. She did have a 4 point decline in hemoglobin postoperatively compared to presentation which is likely related to surgical blood loss as well as dilutional effect. Hemoglobin and hematocrit are remaining stable. Vital signs are stable and there is no evidence of ongoing blood loss. (4) Hypertension: Code(s): I10 - Essential (primary) hypertension Status: Acute Assessment and Plan: Blood pressure reviewed and had been fairly well controlled. She had episode of hypotension as described above. BP has remained stable following, therefore antihypertensives can be resumed. She would benefit from monitoring her BP at home for possible medication adjustment per PCP. (5) Asthma: Qualifiers: Asthma severity: mild Asthma persistence: intermittent Asthma complication type: with acute exacerbation Qualified Code(s): J45.21 - Mild intermittent asthma with (acute) exacerbation Code(s): J45.909 - Unspecified asthma, uncomplicated Status: Acute Assessment and Plan: Not in acute exacerbation. She is maintaining adequate oxygen saturations on room air. Continue albuterol as needed. Subjective Date/time seen: 06/09/20 10:41 Interval history: Date of service: 06/09/2020 Tierra Nelson is a 74 year old female with a history left knee degenerative joint disease, hypertension, asthma, osteoarthritis, anemia, GERD, and TIA >10 years ago who is seen in follow-up after left total knee arthroplasty on 06/07/2020. She is feeling pretty fatigued today. She is having soreness in left leg. She had been up and walking with therapy which she reports was difficult. She is still having some discomfort of the left calf but states that it is improved today. She is complaining of a bit of indigestion. She feels any she needs to have a bowel movement. She endorses abdominal bloating but denies cramping or pain. She denies nausea or vomiting. Her appetite has been good. She has not had any further episodes of dizziness or lightheadedness. She reports mild sinus congestion today, which is pretty typical for her. Denies shortness breath, cough, chest pain, or palpitations. She has no additional concerns. Review of Systems Review of Systems: All systems reviewed & are unremarkable except as noted in HPI and below Exam Narrative: Exam Narrative: Ms. Nelson is a well-nourished, well-appearing 74-year-old female who is lying semi recumbent in bed
[2020-06-09] MEDS: oxyCODONE/ACETAMINOPHEN (*CRX) 5-325 MG TABLET 1 TABLET PO ×2 (11:30→20:54)
[2020-06-09] MEDS: MORPHINE SULFATE (*CRX) 2 MG/ML INJ IV PUSH (12:34)
[2020-06-09] MEDS: ATORVASTATIN 20 MG TABLET PO (17:13)
[2020-06-09] MEDS: PANTOPRAZOLE 40 MG TABLET PO (17:13)
--- NOTE | 2020-06-09 17:18 | PC.NURSE ---
call to pharm for missing dose of celebrex
[2020-06-09] MEDS: CELECOXIB 100 MG CAPSULE PO (17:36)
[2020-06-09 22:23] VITALS: BP 130/73; PULSE 91; RESP 18; TEMP 36.6; O2SAT 96
[2020-06-10 02:00] VITALS: BP 130/74; PULSE 87; RESP 18; TEMP 36.4; O2SAT 96
[2020-06-10 06:00] VITALS: BP 125/78; PULSE 100; RESP 21; TEMP 36.6; O2SAT 100
[2020-06-10] MEDS: oxyCODONE/ACETAMINOPHEN (*CRX) 5-325 MG TABLET 1 TABLET PO (07:20)
--- NOTE | 2020-06-10 08:17 | PM.PNORT ---
Progress Note: A&P Assessment and Plan (1) Status post left knee replacement: Code(s): Z96.652 - Presence of left artificial knee joint Status: Acute Assessment and Plan: POD #3: Left TKA Difficulty with pain control yesterday, improvement with addition of IV tylenol and Morphine x1. Patient now reports well controlled pain. VSS. H/H Stable. Continue PT/OT. WBAT. Walker. OOB to chair. Continue pain control. Ice Knee. DVT prophylaxis with Aspirin. SCDs. Incentive spirometry. Dressing c/d/i. Changed on 06/09. Dispo: Home with Home Health today pending progress with PT/OT. (2) Pain of left calf: Code(s): M79.662 - Pain in left lower leg Status: Acute Assessment and Plan: Calf pain/tightness with significant improvement. Doppler on 06/08 negative for DVT. DICK wrap applied yesterday. Removed today for assessment, improvement in swelling noted. No evidence of hematoma. NV intact. Good capillary refill. DICK wrap reapplied. Patient understands how to remove/reapply at home. Subjective Subjective Date/Time Seen: 06/10/20 08:17 POD #3: Left TKA Patient with significant improvement in pain today. Up to chair for breakfast and transferred back to bed. No new complaints. Hopeful for discharge home today after PT/OT. Review of Systems Review of Systems: All systems reviewed & are unremarkable except as noted in HPI and below Constitutional: Constitutional: Denies fever(s) and Denies headache(s) ENT: Denies headache(s) Cardiovascular: Cardiovascular: Denies chest pain, Denies diaphoresis, Denies palpitations and Denies dyspnea Respiratory: Respiratory: Denies dyspnea Gastrointestinal: Gastrointestinal: Denies abdominal pain, Denies constipation, Denies nausea and Denies vomiting Genitourinary: Genitourinary: Reports nocturia and Denies dysuria Musculoskeletal: Musculoskeletal: Reports arthralgias (Left Knee ) and Reports joint swelling (Left Knee ) Neurologic: Denies headache(s) Endocrine: Endocrine: Denies palpitations Exam Const: General: comfortable and no acute distress Resp: Effort & Inspection: normal respiratory effort Cardio: Rate: regular rate Rhythm: regular rhythm GI: GI Palp: Yes Soft to palpation, No Tenderness to palpation present (GI) and No Guarding due to palpation present (GI) Skin: Wounds: wounds noted Other: Incision c/d/i. No surrounding redness/warmth. No hematoma. Mild ecchymosis. No wound dehiscence. Thigh soft/Calf soft. Neuro: Cognition (Neuro): normal cognition Other: NV intact. Moves toes. Sensation intact to light touch. +ankle dorsiflexion/plantarflexion. Extrem: Right lower extremity: normal to inspection, full ROM and knee Details: normal to inspection and normal ROM; no tenderness and no swelling Left lower extremity: normal to inspection, full ROM, knee Details: tenderness (IMPROVED ) Location: of the patella, of the medial joint line and of the lateral joint line, swelling (diffuse- thigh/calf soft- IMPROVED), abnormal ROM (ROM limited due to pain/consistent with recent surgery ) Details: pain with active ROM Details: with extension and with flexion, pain with passive ROM Details: with extension and with flexion and with range as follows (limited ); able to extend lower leg actively and ecchymosis (diffuse left knee- no evidence of hematoma ); no crepitus, lower leg Details: tenderness (mild- improvement from exam yesterday. ) Location: of the posterior calf, ankle (+ankle dorsiflexion/plantarflexion ) Details: no edema and foot (2+ pedal pulses. ) Details: normal capillary refill, toes with normal ROM and vascular exam (2+ pedal pulses. ) Details: dorsalis pedis pulse present Other: Incision left TKA dressing c/d/i. No hematoma. No signs of infection. No wound dehiscence. Psych: Mental Status: mental status grossly normal Thought content: Yes Normal thought content present Objective Data Vital Signs Vital Signs: Vital Signs - 24 hr 04
[2020-06-10] MEDS: DOCUSATE SODIUM 100 MG CAPSULE PO (08:25)
[2020-06-10] MEDS: CELECOXIB 100 MG CAPSULE PO (08:25)
[2020-06-10] MEDS: ASPIRIN 325 MG ENTERIC TABLET 650 MG PO (08:25)
[2020-06-10] MEDS: polyethylene glycoL 3350 17 GM POWD.PACK PO (08:32)
[2020-06-10 09:13] VITALS: O2SAT 96
[2020-06-10 09:44] VITALS: BP 115/65; PULSE 93; RESP 18; TEMP 36.8; O2SAT 96
--- NOTE | 2020-06-10 12:19 | PM.IMPN ---
Progress Note: A&P Assessment and Plan (1) Status post left knee replacement: Code(s): Z96.652 - Presence of left artificial knee joint Status: Acute Assessment and Plan: She underwent left total knee arthroplasty on 06/07/[address] Castaneda. She tolerated the procedure well and pain is well controlled at this time. This is being managed per Orthopedic Surgery. She had some left lower leg swelling and tenderness postoperatively that has improved. Venous Doppler negative for DVT. Planning for return home today following PT/OT clearance. She has home health arranged. (2) Hypotension after procedure: Code(s): I95.81 - Postprocedural hypotension Status: Acute Assessment and Plan: Her BP declined to 79/48 on 06/08 while walking with therapy. She felt dizzy at that time but symptoms quickly resolved. Prior blood pressure readings were well controlled. Upon further review, she also had an episode of hypotension with last surgical procedure in September 2019. She was given a 500 mL IV fluid bolus. Orthostatic BP evaluation was negative. Amlodipine and candesartan were held. Subsequent blood pressure readings have improved. Last BP 115/65. Antihypertensives can be resumed. I recommend that she monitor her BP at home 2-3 days per week for PCP review. (3) Anemia: Code(s): D64.9 - Anemia, unspecified Status: Acute Assessment and Plan: She has a documented history of anemia, however prior labs are within normal limits. She did have a 4 point decline in hemoglobin postoperatively compared to presentation which is likely related to surgical blood loss as well as dilutional effect. Hemoglobin and hematocrit remained stable following. Vital signs are stable and there is no evidence of ongoing blood loss. (4) Hypertension: Code(s): I10 - Essential (primary) hypertension Status: Acute Assessment and Plan: Blood pressure reviewed and had been fairly well controlled. She had episode of hypotension as described above. BP has remained stable following, therefore antihypertensives have been resumed. Last BP 115/65 today. (5) Asthma: Qualifiers: Asthma severity: mild Asthma persistence: intermittent Asthma complication type: with acute exacerbation Qualified Code(s): J45.21 - Mild intermittent asthma with (acute) exacerbation Code(s): J45.909 - Unspecified asthma, uncomplicated Status: Acute Assessment and Plan: Not in acute exacerbation. She is maintaining adequate oxygen saturations on room air. Continue albuterol as needed. Additional Plan She is stable for discharge home from medicine standpoint. Subjective Date/time seen: 06/10/20 12:19 Interval history: Date of service: 06/10/2020 Tierra Nelson is a 74 year old female with a history left knee degenerative joint disease, hypertension, asthma, osteoarthritis, anemia, GERD, and TIA >10 years ago who is seen in follow-up after left total knee arthroplasty on 06/07/2020. She is doing well today. Her pain has improved. She is passing flatus and feels she needs to have a bowel movement. She has been eating well. Denies shortness of breath. She has no other concerns. She feels comfortable with discharge home today. Review of Systems Review of Systems: All systems reviewed & are unremarkable except as noted in HPI and below Exam Narrative: Exam Narrative: Ms. Nelson is a well-nourished, well-appearing 74-year-old female who is lying semi recumbent in bed. She appears comfortable and is in NARD. Neuro: awake, alert and oriented x4, no focal neuro deficits noted HEENMT: normocephalic, atraumatic, EOMI, sclerae anicteric, moist oral mucosa, tongue midline, nares patent Neck: supple, no lymphadenopathy Respiratory: clear to auscultation bilaterally, nonlabored breathing Cardio: regular rate, regular rhythm with S1-S2 Abdomen: Protuberant, normoactive cami
[2020-06-10 14:00] VITALS: BP 128/69; PULSE 97; RESP 16; TEMP 37; O2SAT 97
--- NOTE | 2020-06-12 15:42 | PM.DS ---
DS: Admitting Diagnosis Admitting Diagnosis Admitting Diagnosis: Left Knee DJD DS: Discharge Diagnosis Discharge Diagnosis (1) Status post left knee replacement: Code(s): Z96.652 - Presence of left artificial knee joint Status: Acute Assessment and Plan: POD #3: Left TKA Difficulty with pain control yesterday, improvement with addition of IV tylenol and Morphine x1. Patient now reports well controlled pain. VSS. H/H Stable. Continue PT/OT. WBAT. Walker. OOB to chair. Continue pain control. Ice Knee. DVT prophylaxis with Aspirin. SCDs. Incentive spirometry. Dressing c/d/i. Changed on 4/. Dispo: Home with Home Health today pending progress with PT/OT. (2) Pain of left calf: Code(s): M79.662 - Pain in left lower leg Status: Acute Assessment and Plan: Calf pain/tightness with significant improvement. Doppler on 4/ negative for DVT. WILL wrap applied yesterday. Removed today for assessment, improvement in swelling noted. No evidence of hematoma. NV intact. Good capillary refill. WILL wrap reapplied. Patient understands how to remove/reapply at home. DS: Summary Hospital Course Reason for hospitalization: Left TKA Hospital Course: 74 year old female admitted s/p left TKA for postoperative medical management, pain control and PT/OT. Patient had a hypotensive episode on POD #1 which was quickly resolved. BP medications held by hospitalist service and IV fluids administered. Patient had difficulty with postoperative pain control and required a longer stay with more physical and occupational therapy. She also had difficulty with left posterior calf pain and a Doppler was obtained which revealed no evidence of a DVT. Her calf pain resolved quickly after Webril and an Will wrap was applied from the foot to the thigh. Patient was then cleared by Physical therapy and Occupational therapy on postop day 3 to go home with home health. The patient will be home with home health for approximately 2 weeks and then she will follow up in our outpatient clinic to progress to outpatient physical therapy. Her dressing was changed prior to discharge. No evidence of hematoma or wound dehiscence. An additional dressing was provided to the patient for the home health nurse to change in prep for 5 days. Her gabriella will be removed on the 14th day after surgery and Steri-Strips will be placed. All questions were answered and patient felt comfortable with discharge home as her pain was well controlled. Status at Discharge Functional status at discharge: uses cane/walker Overall status at discharge: patient is progressing back to baseline Time Spent with Patient Time attestation: Total time spent providing and/or coordinating discharge services: Exam Skin: Other: Incision c/d/i. No surrounding redness/warmth. No hematoma. Mild ecchymosis. No wound dehiscence. Thigh soft/Calf soft. Neuro: Other: NV intact. Moves toes. Sensation intact to light touch. +ankle dorsiflexion/plantarflexion. Extrem: Right upper extremity: normal to inspection, full ROM and normal capillary refill Left upper extremity: normal to inspection, full ROM and normal capillary refill Other: Incision left TKA dressing c/d/i. No hematoma. No signs of infection. No wound dehiscence. Discharge Plan Discharge Attending physician on discharge: Aashish Castaneda Consulting providers: Mar Li Discharging Clinician: Thais Valenzuela Anticipated Discharge Date/Time: 06/10/20 12:00 Patient Disposition: Home Health Service Activity: may shower, no driving and follow weight bearing status Diet: as tolerated Wound Care Instructions: follow printed instructions Discharge Instructions: Per Care Coordination, patient to have [facility] services for PT/OT and [facility] services. [phone]). Post Op Total Knee Replacement Instructions Dr. Aashish Castaneda [phone] ?Your dressing will be changed prior to
== END 2020-06-10 14:20 | disposition home health service (06) ==
LOC: ANHSURGERY 15:47 → ANH2MED 15:47
PROVIDERS: Physician Assistant; Admitting Provider Orthopaedic Surgery; PCP Family Medicine Adolescent Medicine; Visit Provider Orthopaedic Surgery
PROC: (CPT 27447; principal; 2020-06-07 10:30)
DX: M17.12 Unilateral primary osteoarthritis, left knee (principal); G89.18 Other acute postprocedural pain; I95.81 Postprocedural hypotension; M79.662 Pain in left lower leg; D64.9 Anemia, unspecified; I10 Essential (primary) hypertension; J45.909 Unspecified asthma, uncomplicated; K21.9 Gastro-esophageal reflux disease without esophagitis; Z86.73 Personal history of transient ischemic attack (TIA), and cerebral infarction without residual deficits
CPT/HCPCS: 27447; 64447; 36415; 73560; 80048; 85014; 85018; 85025; 85027; 93971; 94640; 97110; 97116; 97161; 97165; 97530; 97535; A9270; C1713; C1776; G0378; J0131; J0171; J0690; J1100; J2250; J2270; J2405; J2704; J2795; J3010; J7040; J7120

== ENCOUNTER 2020-06-22 14:29 | Outpatient (CLI) | payer MEDICARE, SELFPAY | END 2020-06-22 14:30 | disposition home or self-care (01) | LOC: ANHCOVIDVC 14:29 | PROVIDERS: PCP Family Medicine Adolescent Medicine | DX: Z23 Encounter for immunization (principal) | CPT/HCPCS: 0001A; 91300 ==

== ENCOUNTER 2020-07-13 14:29 | Outpatient (CLI) | payer MEDICARE, SELFPAY | END 2020-07-13 14:30 | disposition home or self-care (01) | LOC: ANHCOVIDVC 14:30 | PROVIDERS: PCP Family Medicine Adolescent Medicine | DX: Z23 Encounter for immunization (principal) | CPT/HCPCS: 0002A; 91300 ==

== ENCOUNTER 2020-12-22 07:52 | Outpatient (CLI) | payer MEDICARE, SELFPAY ==
--- NOTE | 2020-12-22 08:50 | ECG_ITS ---
Measurements Intervals [place] Rate: 81 P: 46 CA: 145 QRS: 29 QRSD: 93 T: 29 QT: 357 QTc: 416 Interpretive Statements SINUS RHYTHM NONSPECIFIC T-WAVE ABNORMALITY- ANTERIOR LEADS BORDERLINE ECG Electronically Signed On 12-22-2020 9:19:28 CDT by Jim Brown D.O.
[2020-12-22 09:30] LABS: INR 0.9; Prothrombin Time 12.2 Seconds (11.1-14.7)
[2020-12-22 09:34] LABS: Basophils Percent Auto 0.7 % (0.2-1.2); Eosinophils Absolute Auto 0.2 K/mm3 (0-0.3); Eosinophils Percent Auto 3.7 % (0-4.4); Hematocrit 44.7 % (37.0-47.0); Hemoglobin 14.8 g/dL (12.0-15.0); Immature Granulocyte Absolute 0.04 K/mm3 (0.00-0.031); Immature Granulocyte Percent A 0.9 % (0-0.5); Lymphocytes Absolute Auto 1.13 K/mm3 (0.9-3.2); Lymphocytes Percent Auto 25.9 % (18.3-44.2); Mean Corpuscular HGB Conc 33.1 g/dl (32-36); Mean Corpuscular Hemoglobin 28.5 pg (26-34); Mean Platelet Volume 11.2 fl (7.4-10.4); Monocytes Absolute Auto 0.7 K/mm3 (0.1-0.6); Monocytes Percent Auto 15.3 % (2.6-8.5); Neutrophils Absolute Auto 2.3 K/mm3 (1.3-6.7); Neutrophils Percent Auto 53.5 % (45.5-73.1); Platelet Count Result 214 k/mm3 (150-375); Red Cell Distribution Width 12.6 % (11.5-14.5); White Blood Count 4.4 K/mm3 (4.5-10.0)
[2020-12-22 09:36] LABS: Add Urine Microscopic? YES; Appearance Urine Clear (Clear); Bilirubin Urine Negative (Negative); Blood Urine 2+ (Negative); Calcium Oxalate Crystals Urine Many /hpf; Color Urine Yellow (Yellow); Glucose Urine UA Negative (Negative); Ketones Urine Negative (Negative); Leukocyte Esterase Ur Trace LEU/UL (Negative); Mucus Urine Heavy /lpf; Nitrate Urine Negative (Negative); Protein Urine 1+ mg/dL (Negative); Specific Grav Ur 1.025 (1.001-1.035); Squamous Epithelial Cell Urine Occasional /hpf (Few); Urobilinogen Urine Negative mg/dL (<2.0)
[2020-12-22 09:44] LABS: Albumin Level 4.6 g/dL (3.5-5.1); Anion Gap 6 mmol/L (8-16); Blood Urea Nitrogen 15 mg/dL (7-17); Calcium 10.3 mg/dL (8.4-10.2); Carbon Dioxide 31 mmol/L (22-30); Chloride 105 mmol/L (98-107); Estimated Glomerular Filt Rate > 60; Glucose 132 mg/dL (65-110); Potassium 3.9 mmol/L (3.4-5.0); Sodium 142 mmol/L (137-145)
[2020-12-22 09:47] LABS: Urine Cotinine NEGATIVE
[2020-12-22 13:37] LABS: Hemoglobin A1C 5.6 % (<5.7)
== END 2020-12-22 07:53 | disposition home or self-care (01) ==
LOC: ANHSURGERY 07:58
PROVIDERS: PCP Family Medicine Adolescent Medicine; Visit Provider Orthopaedic Surgery
DX: M17.11 Unilateral primary osteoarthritis, right knee (principal); Z01.818 Encounter for other preprocedural examination; R94.31 Abnormal electrocardiogram [ECG] [EKG]
CPT/HCPCS: 80048; 80307; 81001; 82040; 83036; 85025; 85610; 85730; 86850; 86900; 86901; 87081; 87086; 93005

== ENCOUNTER 2020-12-26 03:36 | Day surgery (SDC) | payer MEDICARE, SELFPAY ==
[2020-12-22 08:14] VITALS: BP 134/97; PULSE 103; RESP 18; TEMP 37.1; O2SAT 96; BMI 29.6
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
--- NOTE | 2020-12-25 12:09 | WPDANESPNB ---
Anes - Peripheral Nerve Block Date/Time: 12/25/20 12:09 I have discussed with the patient/family/POA the placement of a peripheral nerve block for post-operative pain management, including associated risks, benefits, complications, and side effects. Alternative methods of post-operative analgesia were detailed. Questions were solicited and answers provided to the satisfaction of the patient/family/POA. Time-Out: A pre-procedural Time-Out was completed immediately before starting the procedure and confirmed: Patient Identification, Site, Procedure, Patient Position and the Availability of Requisite Equipment. Clinical Indications: Acute post-operative pain management requested by the operative surgeon. Nerve Block Insertion Note Anes-nerve block: adductor canal right Patient position: supine Skin prep: chlorhexidine Needle: 22 gauge, stimulating, insulated echogenic needle. Needle length: 80 mm Technique: ultrasound Injectate: bupivacaine 0.5% with epi 5 mcg/ml (30cc - no epi) Observations: tolerated well Complications: none Procedure start time:: 956 Procedure end time:: 1000
[2020-12-26] VITALS (17 sets, daily range): BP systolic 111–153; BP diastolic 75–100; PULSE 62–97; RESP 11–24; TEMP 35.7–36.6; O2SAT 91–100
--- NOTE | ~2020-12-26 | XR_ITS ---
EXAMINATION: XR knee RT 2V DATE: 12/26/2020 13:28 CDT INDICATION: Right total knee arthroplasty TECHNIQUE: 2 views right knee FINDINGS: There is a right total knee arthroplasty in expected position. Subcutaneous gas with fluid and air in the joint are consistent with recent surgery. No evidence of periprosthetic fracture. IMPRESSION: 1. Recent right total knee arthroplasty. Reviewed, dictated and finalized at location B.
--- NOTE | 2020-12-26 07:25 | WPDHPUPDATE1 ---
History and Physical Update Update Date/Time: 12/26/20 07:25 History and Physical has been reviewed, including an updated exam of the patient. There are NO changes in the patient's condition. Risks, benefits, and alternatives have been discussed and questions answered. Patient agrees to proceed with procedure.
[2020-12-26] MEDS: ACETAMINOPHEN 500 MG TABLET 1000 MG PO (08:50)
[2020-12-26] MEDS: TRANEXAMIC ACID 1,000MG/ISO100 1,000 MG/100 ML BAG 200 MG IVPB ×2 (08:50→11:54)
[2020-12-26] MEDS: LACTATED RINGERS 1,000 ML 30 ML IV CONT ×2 (08:51→12:45)
[2020-12-26] MEDS: ceFAZolin 2 GM/D5W 50 ML 2 GM/50 ML BAG IVPB ×2 (10:30→17:17)
[2020-12-26] MEDS: methylPREDNISolone ACETATE 80 MG/ML VIAL IM (12:15)
--- NOTE | 2020-12-26 13:00 | W.PM.PROC2 ---
Procedure Note - Detailed Date of Procedure 12/26/20 Pre-op Diagnosis right knee DJD, pain left knee Post-op Diagnosis same Procedure Performed R TKA Surgeon Aashish Castaneda MD Anesthesia general Description of Procedure THE RIGHT KNEE WAS PREPPED AND DRAPED IN THE STERILE FASHION. A MIDLINE SKIN INCISION WAS MADE. A MEDIAL PARAPATELLAR ARTHROTOMY WAS MADE. THE PATELLA WAS EVERTED. THERE WAS TRICOMPARTMENT DJD. THERE WAS MINIMAL PATELLA DJD. AN INTRAMEDULLARY ROBYN WAS PLACED IN THE FEMUR. A DISTAL FEMORAL CUT WAS MADE IN 5 DEGREES OF VALGUS REMOVING APPROXIMATELY 9 MM OF BONE FROM THE DISTAL FEMUR. THE FEMUR WAS SIZED TO 62.5. A 62.5 FEMORAL CUTTING BLOCK WAS PLACED IN 3 DEGREES OF EXTERNAL ROTATION AND IN ALIGNMENT WITH ERIC'S LINE AND THE TRANSEPICONDYLAR AXIS. ANTERIOR POSTERIOR AND CHAMFER CUTS WERE MADE. THE CUTS WERE EXCELLENT. NEXT AN INTRAMEDULLARY CUTTING GUIDE WAS PLACED IN THE TIBIA. A TRANS TIBIAL CUT WAS MADE ALONG THE LONG AXIS OF THE TIBIA. APPROXIMATELY 10 MM OF BONE WAS REMOVED FROM THE HIGH SIDE OF THE TIBIA. THE TIBIA WAS THEN PLANED TO A SMOOTH SURFACE. POSTERIOR FEMORAL OSTEOPHYTES WERE REMOVED FROM THE FEMORAL CONDYLES. A 67 TIBIAL TRIAL WAS PLACED IN ALIGNMENT WITH THE 1/3 MEDIAL ASPECT OF THE TIBIAL TUBERCLE. THEN A 62.5 FEMORAL TRIAL COMPONENT WAS PLACED. BOTH HAD EXCELLENT FITS. EVENTUALLY A 10 MM CR POLYETHYLENE TRIAL COMPONENT WAS PLACED. THE KNEE WAS TAKEN THROUGH A RANGE OF MOTION. THE KNEE CAME OUT TO FULL EXTENSION. THERE WAS NO ABNORMAL TILT TO THE PATELLA. THERE WAS GOOD A/P AND VARUS/VALGUS STABILITY. THERE WAS NO EXCESSIVE ROLL BACK WITH FLEXION. THE TRIAL COMPONENTS WERE REMOVED. THEN A 62.5 FEMORAL COMPONENT AND 67 TIBIAL COMPONENT WITH A 10 CR POLYETHYLENE COMPONENT WERE CEMENTED INTO PLACE. ONCE THE CEMENT WAS HARD THE KNEE WAS TAKEN THROUGH A ROM AGAIN AND FOUND TO BE STABLE WITH NO PATELLA TILT NO EXCESSIVE ROLL BACK WITH FLEXION AND GOOD STABILITY WITH COMPLETE AND FULL EXTENSION. THE KNEE WAS IRRIGATED WITH STERILE BETADINE AND WATER FOR ABOUT 3 MINUTES. THE BLEEDERS WERE CAUTERIZED. THE ARTHROTOMY WAS REPAIRED WITH NUMBER 1 VICRYL. THE SUB CUTANEOUS LAYER WITH 2-0 VICRYL AND THE SKIN WITH EARL. THE WOUND WAS WASHED AND A STERILE DRESSING WAS APPLIED. PATIENT WAS EXTUBATED. Estimated Blood Loss -150.0 Pathology none sent Complications No immediate complications Condition stable Disposition PACU
[2020-12-26] MEDS: fentaNYL CITRATE INJ (*CRX) 100 MCG/2 ML VIAL 25 MCG IV PUSH ×4 (13:25→14:26)
[2020-12-26] MEDS: KETOROLAC 15 MG/ML VIAL (*BKC) IV PUSH (13:49)
[2020-12-26] MEDS: LORazepam (*CRX) 1 MG TABLET PO (17:12)
[2020-12-26] MEDS: oxyCODONE HCL (*CRX) 2.5 MG TAB IR 7.5 MG PO (17:12)
[2020-12-26] MEDS: DOCUSATE SODIUM 100 MG CAPSULE PO (17:13)
[2020-12-26] MEDS: CELECOXIB 200 MG CAPSULE PO (17:13)
[2020-12-26] MEDS: PANTOPRAZOLE 40 MG TABLET PO (17:14)
[2020-12-26] MEDS: ATORVASTATIN 20 MG TABLET PO (17:14)
--- NOTE | 2020-12-26 17:29 | PC.NURSE ---
per Dr Castaneda the po climdamycin patient was on prior tohospital does not need to be continued because she is on ancef
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
[2020-12-26] MEDS: amLODIPine BESYLATE 5 MG TABLET PO (20:44)
[2020-12-26] MEDS: FAMOTIDINE 20 MG TABLET PO (20:44)
[2020-12-26] MEDS: CANDESARTAN CILEXETIL 16 MG TABLET 32 MG PO (20:44)
[2020-12-26] MEDS: oxyCODONE/ACETAMINOPHEN (*CRX) 5-325 MG TABLET 1 TABLET PO (20:48)
[2020-12-27] MEDS: ceFAZolin 2 GM/D5W 50 ML 2 GM/50 ML BAG IVPB ×2 (01:43→11:11)
[2020-12-27 02:56] VITALS: BP 107/70; PULSE 76; RESP 18; TEMP 35.7; O2SAT 96
[2020-12-27 05:36] LABS: Basophils Percent Auto 0.2 % (0.2-1.2); Hematocrit 36.6 % (37.0-47.0); Immature Granulocyte Absolute 0.07 K/mm3 (0.00-0.031); Immature Granulocyte Percent A 0.5 % (0-0.5); Lymphocytes Absolute Auto 1.14 K/mm3 (0.9-3.2); Lymphocytes Percent Auto 7.6 % (18.3-44.2); Mean Corpuscular HGB Conc 32.8 g/dl (32-36); Mean Corpuscular Hemoglobin 28.9 pg (26-34); Mean Corpuscular Volume 88.2 fl (80-100); Mean Platelet Volume 11.3 fl (7.4-10.4); Monocytes Absolute Auto 1.1 K/mm3 (0.1-0.6); Monocytes Percent Auto 7.3 % (2.6-8.5); Neutrophils Absolute Auto 12.7 K/mm3 (1.3-6.7); Neutrophils Percent Auto 84.4 % (45.5-73.1); Platelet Count Result 229 k/mm3 (150-375); Red Blood Count 4.15 M/mm3 (4.2-5.4); Red Cell Distribution Width 12.6 % (11.5-14.5)
[2020-12-27 05:47] LABS: Alanine Aminotransferase 25 U/L (4-35); Alkaline Phosphatase 67 U/L (38-126); Anion Gap 9 mmol/L (8-16); Aspartate Amino Transferase 35 U/L (14-36); Bilirubin,Total 0.3 mg/dL (0.2-1.3); Blood Urea Nitrogen 19 mg/dL (7-17); Calcium 9.5 mg/dL (8.4-10.2); Carbon Dioxide 25 mmol/L (22-30); Chloride 104 mmol/L (98-107); Estimated CRCL calculation 51 ml/min; Estimated Glomerular Filt Rate > 60; Glucose 169 mg/dL (65-110); Potassium 4.2 mmol/L (3.4-5.0); Sodium 138 mmol/L (137-145)
[2020-12-27] MEDS: ONDANSETRON INJ 4 MG/2 ML VIAL IV PUSH (06:23)
[2020-12-27] MEDS: oxyCODONE HCL (*CRX) 2.5 MG TAB IR 7.5 MG PO (06:45)
[2020-12-27] MEDS: FAMOTIDINE 20 MG TABLET PO (07:50)
[2020-12-27] MEDS: ASPIRIN 325 MG ENTERIC TABLET 650 MG PO (07:50)
[2020-12-27] MEDS: CELECOXIB 200 MG CAPSULE PO (07:50)
[2020-12-27] MEDS: DOCUSATE SODIUM 100 MG CAPSULE PO (07:50)
[2020-12-27 10:15] VITALS: BP 116/68; PULSE 66; RESP 16; TEMP 36.5; O2SAT 94
--- NOTE | 2020-12-27 10:59 | PM.IMPN ---
Progress Note: A&P Assessment and Plan (1) Degenerative joint disease of right knee: Code(s): M17.11 - Unilateral primary osteoarthritis, right knee Status: Acute Assessment and Plan: POD #1 S/p right TKA per Dr. Castaneda Ortho following PT/OT Pain management DVT Ppx (2) Hypertension: Code(s): I10 - Essential (primary) hypertension Status: Acute Assessment and Plan: Stable Continue amlodipine Monitor (3) Anxiety: Code(s): F41.9 - Anxiety disorder, unspecified Status: Acute Assessment and Plan: Continue lorazeam (4) Gastroesophageal reflux disease: Code(s): K21.9 - Gastro-esophageal reflux disease without esophagitis Status: Acute Assessment and Plan: PPI (5) Hyperlipidemia: Code(s): E78.5 - Hyperlipidemia, unspecified Status: Acute Assessment and Plan: Continue atorvastatin Additional Plan Code status: FULL Disposition: Likely d/c home today Subjective Date/time seen: 12/27/20 10:59 Interval history: pt seen and evaluated; labs, vs reviewed; pain is controlled; up to chair; no acute events overnight Review of Systems Review of Systems: All systems reviewed & are unremarkable except as noted in HPI and below Exam Const: General: no acute distress, alert and awake Orientation/consciousness: patient oriented x3 HENMT: Head: normocephalic Ears: hearing grossly normal bilaterally and external ears normal Face and sinus: face symmetric Mouth: Yes Normal oral and palatal mucosa present Eyes: Pupils: Equal, round and reactive pupils present EOM: EOMs intact bilaterally Neck: Neck: full ROM, trachea midline and no JVD Resp: Effort & Inspection: normal respiratory effort Auscultation: clear to auscultation bilaterally Cardio: Jugular venous distension: no JVD Rate: regular rate Rhythm: regular rhythm Heart sounds: S1 normal heart sound present and S2 normal heart sound present Peripheral pulses: Peripheral pulses 2+ throughout GI: Inspection: normal to inspection Percussion: Yes normal to percussion Auscultation: normal bowel sounds : General: Yes no CVA tenderness Back/Spine/Pelvis: Back: no CVA tenderness Skin: General skin exam: normal color Rashes: no rashes Neuro: General: patient oriented x3 and CN's II-XI intact bilaterally Speech: normal speech Motor exam (neuro): 5/5 motor strength present throughout Extrem: General: other (RLE dressing intact) Psych: Appearance: grossly normal Affect: normal affect Judgement: Good judgement present (Psych) Objective Data Vital Signs Vital Signs: Vital Signs - 24 hr 12/26/20 12:45 12/26/20 13:00 12/26/20 13:15 Temperature 36.2 C L Pulse Rate 81 91 91 Respiratory Rate 24 H 23 H 20 Blood Pressure 145/93 H 153/90 H 129/94 H Pulse Oximetry 91 91 95 12/26/20 13:30 12/26/20 13:45 12/26/20 14:00 Temperature Pulse Rate 97 88 91 Respiratory Rate 16 23 H 19 Blood Pressure 150/94 H 138/96 H 146/100 H Pulse Oximetry 95 92 92 12/26/20 14:15 12/26/20 14:30 12/26/20 14:45 Temperature Pulse Rate 74 69 62 Respiratory Rate 16 11 L 11 L Blood Pressure 139/86 139/86 134/78 Pulse Oximetry 94 94 94 12/26/20 14:57 12/26/20 15:15 12/26/20 15:30 Temperature 36.6 C 36.2 C L Pulse Rate 69 77 84 Respiratory Rate 14 18 18 Blood Pressure 135/80 140/87 140/79 Pulse Oximetry 98 95 100 12/26/20 16:00 12/26/20 17:00 12/26/20 19:14 Temperature 36.2 C L 36.3 C L 35.7 C L Pulse Rate 76 83 85 Respiratory Rate 16 18 17 Blood Pressure 111/75 124/76 144/88 H Pulse Oximetry 95 95 95 12/26/20 20:31 12/27/20 02:56 12/27/20 10:15 Temperature 35.7 C L 36.5 C Pulse Rate 83 76 66 Respiratory Rate 18 18 16 Blood Pressure 107/70 116/68 Pulse Oximetry 95 96 94 Intake/Output Intake/Output: Intake & Output 12/24/20 12/25/20
[2020-12-27 14:10] VITALS: BP 114/73; PULSE 70; RESP 16; TEMP 36.4; O2SAT 98
--- NOTE | 2020-12-27 15:56 | PM.PNORT ---
Progress Note: A&P Additional Plan POD 1 DOING WELL, PAIN WELL CONTROLLED AND PASSED PT. OK TO DC HOME F/U IN 3 WEEKS Subjective Subjective Date/Time Seen: 12/27/20 15:POD 1 DOING WELL. NO CALF PAIN Exam Extrem: Other: VSS AFEBRILE DRESSING DRY NV INTACT NEG HOMANS SIGN, CALF SOFT NON TENDER Objective Data Vital Signs Vital Signs: Vital Signs - 24 hr 12/26/20 16:00 12/26/20 17:00 12/26/20 19:14 Temperature 36.2 C L 36.3 C L 35.7 C L Pulse Rate 76 83 85 Respiratory Rate 16 18 17 Blood Pressure 111/75 124/76 144/88 H Pulse Oximetry 95 95 95 12/26/20 20:31 12/27/20 02:56 12/27/20 10:15 Temperature 35.7 C L 36.5 C Pulse Rate 83 76 66 Respiratory Rate 18 18 16 Blood Pressure 107/70 116/68 Pulse Oximetry 95 96 94 12/27/20 14:10 Temperature 36.4 C L Pulse Rate 70 Respiratory Rate 16 Blood Pressure 114/73 Pulse Oximetry 98 Intake/Output Intake/Output: Intake & Output 12/24/20 12/25/20 12/26/20 12/27/20 23:59 23:59 23:59 23:59 Intake Total 700 940 Output Total 300 Balance 700 640 Meds/Results Medications: Active Medications Generic Name Dose Route Start Last Admin Trade Name Freq PRN Reason Stop Dose Admin Acetaminophen 1,000 mg 12/26/20 14:58 Acetaminophen 500 Mg Tablet PO Q6H PRN Pain Rated 1-3 Albuterol 2 puff 12/26/20 14:58 Albuterol Sulfate (*Sp) Aerosol 1 Puff INHALATION PRN PRN Shortness Of Breath Amlodipine Besylate 5 mg 12/26/20 21:00 12/26/20 20:44 Amlodipine Besylate 5 Mg Tablet PO 5 mg HS JEFFY Administration Aspirin 650 mg 12/27/20 09:00 12/27/20 07:50 Aspirin 325 Mg Enteric Tablet PO 650 mg DAILY JEFFY Administration Atorvastatin Calcium 20 mg 12/26/20 18:00 12/26/20 17:14 Atorvastatin 20 Mg Tablet PO 20 mg QPM JEFFY Administration Candesartan Cilexetil 32 mg 12/26/20 21:00 12/26/20 20:44 Candesartan Cilexetil 16 Mg Tablet PO 01/25/21 20:59 32 mg HS JEFFY Administration Celecoxib 200 mg 12/26/20 17:00 12/27/20 07:50 Celecoxib 200 Mg Capsule PO 200 mg BIDWM JEFFY Administration Diazepam 5 mg 12/26/20 14:58 Diazepam (*Crx) 5 Mg Tablet PO Q8H PRN Spasms Diphenhydramine HCl 25 mg 12/26/20 14:58 Diphenhydramine Hcl Inj 50 Mg/Ml Vial IV PUSH Q6H PRN Itching Docusate Sodium 100 mg 12/26/20 17:00 12/27/20 07:50 Docusate Sodium 100 Mg Capsule PO 100 mg BID JEFFY Administration Famotidine 20 mg 12/26/20 21:00 12/27/20 07:50 Famotidine 20 Mg Tablet PO 20 mg Q12HR JEFFY Administration Lorazepam 1 mg 12/26/20 14:58 12/26/20 17:12 Lorazepam (*Crx) 1 Mg Tablet PO 1 mg TID PRN Administration Anxiety Naloxone HCl 0.1 mg 12/26/20 14:58 Naloxone Hcl 0.4 Mg/Ml Vial IV PUSH Q2M PRN Opiate Reversal Ondansetron HCl 4 mg 12/26/20 14:58 12/27/20 06:23 Ondansetron Inj 4 Mg/2 Ml Vial IV PUSH 4 mg Q4H PRN Administration Nausea And Vomiting Oxycodone HCl 7.5 mg 12/26/20 14:58 12/27/20 06:45 Oxycodone Hcl (*Crx) 2.5 Mg Tab Ir PO 7.5 mg Q4H PRN Administration Pain Rated 7-10 Oxycodone/Acetaminophen 1 tablet 12/26/20 14:58 12/26/20 20:48 Oxycodone/Acetaminophen (*Crx) 5-325 Mg Tablet PO 1 tablet Q4H PRN Administration Pain Rated 4-6 Pantoprazole Sodium 40 mg 12/26/20 18:00 12/26/20 17:14 Pantoprazole 40 Mg Tablet PO 01/25/21 17:59 40 mg QPM JEFFY Administration Trazodone HCl 50 mg 12/26/20 14:58 Trazodone Hcl 50 Mg Tablet PO HS PRN Insomnia Zolpidem Tartrate 10 mg 12/26/20 14:58 Zolpidem Tartrate (*Crx) 5 Mg Tablet PO HS PRN Insomnia Radiology Results: ITS Impressions Knee X-Ray 12/26/20 13:28 IMPRESSION: 1. Recent right total knee arthroplasty. Labs Labs: Laboratory Results - last 24 hr 12/27/20 12/27/20 04:59 04:59 WBC 15.0 H RBC 4.15 L Hgb 12.0 Hct 36.6 L MCV 88.2 MCH 28.9 MCHC
--- NOTE | 2020-12-27 15:58 | PM.DS ---
DS: Admitting Diagnosis Discharge Date 12/27/20 Admitting Diagnosis RIGHT KNEE DJD DS: Discharge Diagnosis Discharge Diagnosis (1) Degenerative joint disease of right knee: Code(s): M17.11 - Unilateral primary osteoarthritis, right knee Status: Acute DS: Summary Hospital Course Hospital Course: [place] UNDERWENT RIGHT TKA AND WELL DURING SURGERY. POSTOP SHE HAD PAIN WELL CONTROLLED AND SHE WAS UP AND ABOUT WITH PT. SHE HAD NO SIGN OF INFECTION. SHE REMAINED STABLE. SHE WAS TAKING GOOD PO INTAKE. SHE PASSED PT THIS AFTERNPPN. SHE WILL BE DISCHARGED HOME WITH PT AND NURSING, REGULAR DIET, F/U IN 3 WEEKS AND DVT PROPHYLAXIS. Time spent discussing smoking cessation with patient: 3 to 10 minutes Status at Discharge Functional status at discharge: uses cane/walker Time Spent with Patient Time attestation: Total time spent providing and/or coordinating discharge services: Time spent: Less than 30 minutes DS: Data Data Completed and Pending Labs on day of discharge: Labs from last 24 hours 12/27/20 12/27/20 04:59 04:59 WBC 15.0 H RBC 4.15 L Hgb 12.0 Hct 36.6 L MCV 88.2 MCH 28.9 MCHC 32.8 RDW 12.6 Plt Count 229 MPV 11.3 H Immature Gran % (Auto) 0.5 Neut % (Auto) 84.4 H Lymph % (Auto) 7.6 L Stephenson % (Auto) 7.3 Eos % (Auto) 0.0 Baso % (Auto) 0.2 Lymph # (Auto) 1.14 Stephenson # (Auto) 1.1 H Eos # (Auto) 0.0 Baso # (Auto) 0.0 Abs Immat Gran (auto) 0.07 H Absolute Neuts (auto) 12.7 H Absolute Nucleated RBC 0.0 Nucleated RBC % 0.0 Sodium 138 Potassium 4.2 Chloride 104 Carbon Dioxide 25 Anion Gap 9 BUN 19 H Creatinine 0.80 Estim Creat Clear Calc 51 Estimated GFR > 60 Glucose 169 H Calcium 9.5 Total Bilirubin 0.3 Direct Bilirubin 0.0 AST 35 ALT 25 Alkaline Phosphatase 67 Total Protein 7.0 Albumin 4.0 Discharge Plan Discharge Patient Disposition: Home, Self-Care Discharge Instructions: Per Care Coordination, pt. will discharge home with [facility] for continued PT/OT. [facility] will contact pt. at time of D/C. Stand Alone Forms: General Discharge Instructions Follow-up/Referrals: Aashish Castaneda MD [Physician] - 3 Weeks Discharge Medications: New aspirin 325 mg Tablet,Delayed Release (Dr/Ec) 325 mg PO DAILY Qty: 30 RF: 0 oxycodone-acetaminophen [Percocet] 7.5-325 mg tablet 1 tablet PO Q6H PRN (Reason: pain) Qty: 60 RF: 0 Continued atorvastatin 20 mg tablet 20 mg PO QPM RF: 0 esomeprazole magnesium 40 mg capsule,delayed release(DR/EC) 40 mg PO QPM RF: 0 lorazepam 1 mg tablet 1 mg PO TID PRN (Reason: Anxiety) RF: 0 trazodone 50 mg tablet 50 mg PO HS PRN (Reason: Insomnia) RF: 0 amlodipine 5 mg tablet 5 mg PO HS RF: 0 albuterol sulfate 90 mcg/actuation HFA aerosol inhaler 2 puff INHALATION PRN PRN (Reason: Shortness Of Breath) RF: 0 candesartan 32 mg Tablet 32 mg PO HS RF: 0 zolpidem 10 mg tablet 10 mg PO HS PRN (Reason: Insomnia) RF: 0 chlorhexidine gluconate [Hibiclens] 4 % liquid 1 applic topical ONCE Qty: 237 RF: 0 clindamycin HCl 300 mg capsule 300 mg PO BID Qty: 20 RF: 0
== END 2020-12-27 16:38 | disposition home or self-care (01) ==
LOC: ANHSURGERY 08:18 → ANH2MED 14:36
PROVIDERS: PCP Family Medicine Adolescent Medicine; Visit Provider Orthopaedic Surgery
PROC: (CPT 27447; principal; 2020-12-26 10:30)
DX: M17.11 Unilateral primary osteoarthritis, right knee (principal); G89.18 Other acute postprocedural pain; I10 Essential (primary) hypertension; K21.9 Gastro-esophageal reflux disease without esophagitis; J45.909 Unspecified asthma, uncomplicated; D64.9 Anemia, unspecified; Z86.73 Personal history of transient ischemic attack (TIA), and cerebral infarction without residual deficits; Z79.51 Long term (current) use of inhaled steroids; F41.9 Anxiety disorder, unspecified; E78.5 Hyperlipidemia, unspecified
CPT/HCPCS: 27447; 64447; 36415; 73560; 80048; 80076; 85025; 97110; 97116; 97161; 97165; 97535; A9270; C1713; C1776; J0171; J0690; J1040; J1100; J1170; J1885; J2270; J2370; J2405; J2704; J2795; J3010; J7120

== ENCOUNTER 2021-01-11 16:49 | Emergency (ER) | payer MEDICARE, SELFPAY ==
[2021-01-11] VITALS (10 sets, daily range): BP systolic 100–128; BP diastolic 72–91; PULSE 89–134; RESP 14–28; TEMP 37.1; O2SAT 95–99
--- NOTE | ~2021-01-11 | CT_ITS ---
EXAMINATION: CT abdomen pelvis w con DATE: 01/11/2021 18:41 INDICATION: Epigastric abdominal pain. Nausea, vomiting, diarrhea, hematochezia. TECHNIQUE: Computed tomography (CT) of the abdomen and pelvis was performed with 100 cc Omnipaque 350 intravenous contrast. Automated exposure control and iterative reconstruction technique were employe d. Exam dose: 468.17 mGy-cm total exam DLP. COMPARISON: 09/12/2013 CT abdomen pelvis FINDINGS: Focal discoid atelectasis or scarring at the posterior lingula. Minimal dependent left lowe r lobe atelectasis. Mild cardiomegaly. No pericardial or pleural effusion. Small sliding hiatal hernia. Status post cholecystectomy. No hepatic space-occupying mass lesion. No bile duct or pancreatic duct dilatation. No pancreatic mas s lesion or calcification. Small duodenal diverticulum. Normal splenic size. Normal morphology of the adrenal glands. There are couple of right renal cysts, the largest approximately 10.6 mm. 5.7 mm left renal cyst. No urinary tract calculus or hydroureteronephrosis. The urinary bladder is re latively evacuated and unremarkable. Status post hysterectomy. There is atherosclerotic calcification but normal caliber of the abdominal aorta. No intraperitoneal or retroperitoneal or pelvic mass lesion or adenopathy or ascites. The appendix is not visualized. There is prominent circumferential soft tissue thickening of the wall of the transverse colon, spleni c flexure and proximal descending colon, with pericolic mild fat stranding in these areas. The findin gs are consistent with colitis which may be infectious, inflammatory or less likely ischemic. No bowel obstruction. There is minimal diverticulosis of the descending colon. No CT evidence of dive rticulitis. No intraperitoneal free air. Included skeletal structures are unremarkable other than diffuse idiopathic skeletal hyperostosis of the thoracic spine. IMPRESSION: Colitis transverse colon, splenic flexure, proximal descending colon; consider infectiou s, inflammatory or less likely ischemic colitis Cardiomegaly Small sliding hiatal hernia Status post cholecystectomy Small duodenal diverticulum Renal cysts Status post hysterectomy Minimal diverticulosis of the colon Reviewed, dictated and finalized at [facility]. Reviewed, dictated and finalized at [facility]. IMPRESSION: Colitis transverse colon, splenic flexure, proximal descending col on; consider infectious, inflammatory or less likely ischemic colitis Cardiomegaly Small sliding hiatal hernia Status post cholecystectomy Small duodenal diverticulum Renal cysts Status post hysterectomy Minimal diverticulosis of the colon
--- NOTE | 2021-01-11 16:59 | ECG_ITS ---
Measurements Intervals [place] Rate: 125 P: 13 [place]: 132 QRS: 64 QRSD: 89 T: 10 QT: 311 QTc: 448 Interpretive Statements SINUS TACHYCARDIA MINIMAL Q WAVES- INFERIOR LEADS BORDERLINE ST ABNORMALITY- ANTERIOR LEADS ABNORMAL ECG Electronically Signed On 01-11-2021 20:32:30 CDT by Jim Brown D.O.
[2021-01-11 17:11] LABS: Basophils Percent Auto 0.2 % (0.2-1.2); Eosinophils Absolute Auto 0.1 K/mm3 (0-0.3); Eosinophils Percent Auto 0.4 % (0-4.4); Hemoglobin 13.4 g/dL (12.0-15.0); Immature Granulocyte Absolute 0.05 K/mm3 (0.00-0.031); Immature Granulocyte Percent A 0.4 % (0-0.5); Lymphocytes Absolute Auto 1.32 K/mm3 (0.9-3.2); Lymphocytes Percent Auto 9.7 % (18.3-44.2); Mean Corpuscular HGB Conc 32.7 g/dl (32-36); Mean Corpuscular Hemoglobin 28.1 pg (26-34); Mean Platelet Volume 9.8 fl (7.4-10.4); Monocytes Percent Auto 7.4 % (2.6-8.5); Neutrophils Absolute Auto 11.1 K/mm3 (1.3-6.7); Neutrophils Percent Auto 81.9 % (45.5-73.1); Platelet Count Result 398 k/mm3 (150-375); Red Blood Count 4.77 M/mm3 (4.2-5.4); Red Cell Distribution Width 12.7 % (11.5-14.5); White Blood Count 13.6 K/mm3 (4.5-10.0)
[2021-01-11 17:20] LABS: INR 0.9; Prothrombin Time 12.4 Seconds (11.1-14.7)
[2021-01-11 17:21] LABS: Partial Thromboplastin Time 28.3 SECONDS (22.3-36.8)
[2021-01-11 17:45] LABS: Alanine Aminotransferase 21 U/L (4-35); Alkaline Phosphatase 94 U/L (38-126); Anion Gap 8 mmol/L (8-16); Aspartate Amino Transferase 26 U/L (14-36); Bilirubin,Total 0.8 mg/dL (0.2-1.3); Blood Urea Nitrogen 19 mg/dL (7-17); Calcium 10.9 mg/dL (8.4-10.2); Carbon Dioxide 28 mmol/L (22-30); Chloride 104 mmol/L (98-107); Estimated CRCL calculation 44 ml/min; Estimated Glomerular Filt Rate > 60; Glucose 146 mg/dL (65-110); Potassium 4.4 mmol/L (3.4-5.0); Sodium 140 mmol/L (137-145)
[2021-01-11] MEDS: ONDANSETRON INJ 4 MG/2 ML VIAL IV PUSH (18:10)
[2021-01-11] MEDS: SODIUM CHLORIDE 0.9% IV 1,000 ML 999 ML IV CONT ×2 (18:10→20:23)
--- NOTE | 2021-01-11 18:44 | ED.GENADULT ---
HPI - General Adult General Chief complaint: GI Bleed Stated complaint: N/V/D Time Seen by Provider: 01/11/21 17:35 History of Present Illness HPI narrative: Patient is a 75-year-old female who presents ER with concerns for rectal bleeding. Reports she is had multiple episodes of bloody stools today. She is also having abdominal cramping. No fevers or chills or sweats. No chest pain or chest pressure. She is not on any blood thinners. No clots. Patient recently underwent surgery to the right knee. She has been taking a baby aspirin. No acid reflux symptoms. Related Data Home Medications Medication Instructions Recorded Confirmed atorvastatin 20 mg tablet 20 mg PO QPM 09/02/19 12/26/20 esomeprazole magnesium 40 mg 40 mg PO QPM 09/02/19 12/26/20 capsule,delayed release lorazepam 1 mg tablet 1 mg PO TID PRN 09/02/19 12/26/20 trazodone 50 mg tablet 50 mg PO HS PRN tablet 09/02/19 12/26/20 albuterol sulfate 2 puff INHALATION PRN PRN 09/24/19 12/26/20 amlodipine 5 mg tablet 5 mg PO HS 05/18/20 12/26/20 candesartan 32 mg PO HS 05/29/20 12/26/20 zolpidem 10 mg PO HS PRN 12/22/20 12/26/20 Allergies Allergy/AdvReac Type Severity Reaction Status Date / Time Sulfa (Sulfonamide Allergy Unknown Unknown Verified 12/26/20 09:33 Antibiotics) Review of Systems Review of Systems: All systems reviewed & are unremarkable except as noted in HPI and below Constitutional: Constitutional: Denies chills, Denies fever(s) and Denies weakness ENT: Denies nasal congestion and Denies sore throat Cardiovascular: Cardiovascular: Denies chest pain and Denies radiating jaw, neck or arm pain Gastrointestinal: Gastrointestinal: Reports abdominal pain, Reports bloating, Reports diarrhea, Reports nausea and Denies vomiting Genitourinary: Genitourinary: Denies nocturia and Denies dysuria Musculoskeletal: Musculoskeletal: Reports joint swelling (Postop) [facility] Past Medical History Medical History (Updated 01/11/21 @ 20:49 by Gamaliel Williamson MD) Anxiety Arthritis Asthma Gastroesophageal reflux disease Hyperlipidemia Hypertension Transient ischemic attack (2009) Surgical History Surgical History (Updated 12/26/20 @ 21:22 by Sandra Sewell PA-C) History of appendectomy History of arthroscopy of left knee History of cholecystectomy History of hysterectomy History of left knee replacement (06/07/20) History of right knee joint replacement (12/26/20) History of skin graft Graft to reddy at the age of 7. History of tonsillectomy Family History Family History Mother Heart disease Father Unknown family medical history Other Hypertension Social History Social History (Updated 12/26/20 @ 21:23 by Sandra Sewell PA-C) Social History: Ms. Nelson lives at home with her adult daughter. She is as of March 2020. She is independent in her daily activities. She designates her daughter, Maritza, as her surrogate decision maker and would like to be a full code. She is a lifelong nonsmoker and does not use drugs. She reports drinking a glass of wine 1 time per month. Exam Narrative: GENERAL: Well-appearing, well-nourished, and in no acute distress. HEAD: Normocephalic, atraumatic. CHEST: Clear to auscultation. No respiratory distress. HEART: Regular rate and rhythm. Normal peripheral pulses. ABDOMEN: Soft, nontender, nondistended, digital rectal exam without any stool or gross blood. Guaiac with a tiny area of light blue that represents blood. EXTREMITIES: Normal range of motion. No edema. SKIN: Warm, dry, no rash. NEURO: Alert and oriented x3. PSYCH: Normal mood and affect. Course Course Emergency Course: Patient hydrated informed of results. Pain controlled. Discussed treatment plan and patient verbalized understanding. She feels comfortable with discharge home. Discussed return precautions. Vital Signs Vital signs: Vital Signs Temperature 98.7
[2021-01-11 19:52] LABS: Add Urine Microscopic? NO; Appearance Urine Clear (Clear); Bilirubin Urine Negative (Negative); Blood Urine Negative (Negative); Color Urine Yellow (Yellow); Glucose Urine UA Negative (Negative); Ketones Urine Negative (Negative); Leukocyte Esterase Ur Negative LEU/UL (Negative); Nitrate Urine Negative (Negative); Protein Urine Negative (Negative); Urobilinogen Urine Negative mg/dL (<2.0)
[2021-01-11 19:59] LABS: Mucus Urine Rare /lpf; RBC Urine 0-2 /hpf (0-2); Specific Grav Ur 1.051 (1.001-1.035); WBC Urine 0-3 /hpf
[2021-01-11] MEDS: MORPHINE SULFATE (*CRX) 4 MG/ML INJ IV PUSH (20:23)
== END 2021-01-11 21:40 | disposition home or self-care (01) ==
PROVIDERS: Emergency Provider Emergency Medicine; PCP Family Medicine Adolescent Medicine
DX: J45.909 Unspecified asthma, uncomplicated (principal); E78.5 Hyperlipidemia, unspecified; I10 Essential (primary) hypertension; K21.9 Gastro-esophageal reflux disease without esophagitis; M19.90 Unspecified osteoarthritis, unspecified site; F41.9 Anxiety disorder, unspecified; Z86.73 Personal history of transient ischemic attack (TIA), and cerebral infarction without residual deficits; Z96.653 Presence of artificial knee joint, bilateral; K52.9 Noninfective gastroenteritis and colitis, unspecified; I51.7 Cardiomegaly; K44.9 Diaphragmatic hernia without obstruction or gangrene; N28.1 Cyst of kidney, acquired; K57.90 Diverticulosis of intestine, part unspecified, without perforation or abscess without bleeding
CPT/HCPCS: 36415; 74177; 80053; 81003; 85025; 85610; 85730; 86850; 86900; 86901; 93005; 96361; 96374; 96375; 99284; J2270; J2405; J7030; Q9967

== ENCOUNTER → 2022-10-28 15:48 | Outpatient (CLI) | payer MEDICARE, SELFPAY ==
--- NOTE | ~2022-10-28 | XR_ITS ---
EXAMINATION: XR lumbar spine 2-3V DATE: 10/28/2022 16:16 INDICATION: Low back pain TECHNIQUE: Standing anteroposterior and lateral views of the lumbar spine, and cone-down lateral view of the lumbosacral junction were obtained. COMPARISON: 09/12/2013 FINDINGS: 7 degrees lower lumbar levocurvature. Sagittal alignment is normal. Vertebral body and disc heights a re normal. Mild lower lumbar facet osteoarthritis. Cholecystectomy clips in the right upper quadrant. IMPRESSION: 1. Mild lower lumbar levocurvature with mild lower lumbar facet osteoarthritis. Reviewed, dictated and finalized at [facility].
== END ==
PROVIDERS: PCP Family Medicine Adolescent Medicine; Visit Provider Family Medicine Adolescent Medicine
DX: M51.36 Other intervertebral disc degeneration, lumbar region (principal)
CPT/HCPCS: 72100